=== PATIENT | female | born 2005 | race Caucasian/White ===

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

== ENCOUNTER 2023-08-12 20:06 | Emergency (ER) | payer OTHER ==
[~2023-08-12] VITALS: Ht 149.9 cm; Wt 47.7 kg
[~2023-08-12 20:06] MED LIST changes: +CHOL100046 PO; +CLOB10TA; +DIF150T PO; +EST1T PO; +FAMO20TA8 PO; +GLUC3SPR; -HYDR5TAB8 PO; -IBUP-2264 PO; +IBUP-2697 PO; +INSU100C10 SQ; +INSU100V41; -KEP500T PO; +LACO100T2 PO; +LIDO1ADH78 TOP; -MAGN400C PO; +MAGN400T39 PO; -NOVRI SQ; +OMEP20CA15 PO; -PANT-47 PO; -PHEN16.22 PO; +PRE5T CORPAK; +PRED5TAB PO; -RUFI400T PO; +SERT25TA PO; +SUMA25TA35 PO; +ZONI100C87 PO
[2023-08-12 20:28] VITALS: BP 125/86; PULSE 99; RESP 14; TEMP 98.3; O2SAT 99
[2023-08-12 21:04] LABS: BASOPHILS % (AUTO) 0.3 % (0-1); EOSINOPHILS # (AUTO) 0.2 X10'3 (0-0.9); EOSINOPHILS % (AUTO) 2.4 % (0-6); HEMATOCRIT 33.6 % (35.0-45.0); HEMOGLOBIN 10.5 g/dl (12.0-16.0); LYMPHOCYTES # (AUTO) 1.7 X10'3 (1.1-4.8); LYMPHOCYTES % (AUTO) 25.6 % (21-51); MEAN CORPUSCULAR HGB CONC 31.1 g/dL (33.0-36.5); MEAN CORPUSCULAR VOLUME 70.8 FL (78-98); MONOCYTES # (AUTO) 0.7 X10'3 (0-0.9); MONOCYTES % (AUTO) 10.6 % (2-12); NEUTROPHILS % (AUTO) 61.1 % (42-75); PLATELET COUNT 365 X10'3 (140-440); RED BLOOD COUNT 4.75 X10'6 (4.20-5.60); RED CELL DISTRIBUTION WIDTH 17.6 % (11.5-14.5); WHITE BLOOD COUNT 6.6 X10'3 (4.5-11.0)
[2023-08-12 21:16] LABS: URINE HCG NEGATIVE (NEG)
[2023-08-12 21:16] LABS: ALANINE AMINOTRANSFERASE 26 U/L (12-78); ALBUMIN 3.8 G/DL (3.4-5.0); ALBUMIN/GLOBULIN RATIO 0.7 (1.1-1.5); ALKALINE PHOSPHATASE 98 IU/L (20-180); ANION GAP 10 (8-16); ASPARTATE AMINO TRANSFERASE 42 U/L (10-37); BILIRUBIN,TOTAL 0.3 MG/DL (0.1-1.0); BLOOD UREA NITROGEN 20 MG/DL (7-18); BUN/CREATININE RATIO 18.7 (10.0-20.0); CALCIUM 8.1 MG/DL (8.5-10.1); CHLORIDE 101 MMOL/L (99-107); CREATININE 1.07 MG/DL (0.40-0.90); GLUCOSE 82 MG/DL (70-104); LIPASE 56 U/L (16-77); POTASSIUM 3.4 MMOL/L (3.5-5.1); SODIUM 139 MMOL/L (135-145); TOTAL CARBON DIOXIDE 28.4 MMOL/L (24-32); TOTAL PROTEIN 9.1 G/DL (6.4-8.2); eCRCL 58 ML/MIN; eGFR 66 ML/MIN
[2023-08-12 21:18] LABS: BILIRUBIN,URINE NEGATIVE (Neg); CLARITY,URINE SLIGHTLY CLOUDY (Clear); COLOR,URINE YELLOW (Yellow); GLUCOSE, URINE 100 mg/dl (Neg); KETONES,URINE NEGATIVE (Neg); LEUKOCYTE ESTERASE ,URINE NEGATIVE (Neg); NITRITES, URINE NEGATIVE (Neg); OCCULT BLOOD,URINE NEGATIVE (Neg); PROTEIN,URINE NEGATIVE (Neg); UROBILINOGEN,URINE 0.2 E.U/dL (0.2-1.0)
[2023-08-12 21:21] LABS: UA COLLECTION TYPE CLN CATCH MIDSTREAM
[2023-08-12 21:46] LABS: AMORPHOUS URATES 2+; BACTERIA,URINE 1+ /HPF (Neg); RBC,URINE 0-2 /HPF (0-2); WBC,URINE 0-4 /HPF (0-4)
[2023-08-12 21:47] LABS: COARSE GRANULAR CAST 0-3 /LPF (NEGATIVE)
[2023-08-12 21:48] LABS: HYALINE CASTS 0-3 /LPF (NEGATIVE); MUCUS STRANDS MODERATE /LPF (Neg); SQUAMOUS EPITHELIAL CELL,UR MANY /LPF (FEW)
[2023-08-13] MEDS ORDERED: ONDA8TAB13 PO (00:43)
[2023-08-13] MEDS ORDERED: FAMO-128 PO (00:43)
[2023-08-13] MEDS: famotidine 20mg tablet PO ONE (01:06)
[2023-08-13] MEDS: ondansetron 4mg rapidly disintigrating tab PO ONE (01:06)
[2023-08-13] MEDS ORDERED: SULF1TAB49 PO (01:07)
[2023-08-13 01:42] LABS: STREP A SCREEN NEGATIVE (Neg)
== END 2023-08-13 01:41 | disposition home or self-care (01) ==
LOC: ER 20:06
DX: R10.13 Epigastric pain (principal); Z88.0 Allergy status to penicillin; E11.9 Type 2 diabetes mellitus without complications; Z90.49 Acquired absence of other specified parts of digestive tract
CPT/HCPCS: 36415; 80053; 81001; 81025; 83690; 85025; 87081; 87880; 99283

== ENCOUNTER 2023-09-12 17:17 | Emergency (ER) | payer OTHER ==
[~2023-09-12] VITALS: Ht 162.6 cm; Wt 45.5 kg
[~2023-09-12 17:17] MED LIST changes: -CLOB10TA; +CLOB10TA PO; +FAMO-128 PO; +LEVO-65 PO; +ONDA8TAB13 PO
[2023-09-12 17:25] VITALS: TEMP 98.6
[2023-09-12 19:47] LABS: ALANINE AMINOTRANSFERASE 37 U/L (12-78); ALBUMIN 3.6 G/DL (3.4-5.0); ALBUMIN/GLOBULIN RATIO 0.8 (1.1-1.5); ALKALINE PHOSPHATASE 64 IU/L (20-180); ANION GAP 13 (8-16); ASPARTATE AMINO TRANSFERASE 38 U/L (10-37); BILIRUBIN,TOTAL 0.2 MG/DL (0.1-1.0); BLOOD UREA NITROGEN 19 MG/DL (7-18); BUN/CREATININE RATIO 15.1 (10.0-20.0); CALCIUM 7.2 MG/DL (8.5-10.1); CHLORIDE 97 MMOL/L (99-107); CREATININE 1.26 MG/DL (0.40-0.90); GLUCOSE 350 MG/DL (70-104); POTASSIUM 3.4 MMOL/L (3.5-5.1); SODIUM 131 MMOL/L (135-145); TOTAL CARBON DIOXIDE 21.4 MMOL/L (24-32); TOTAL PROTEIN 8.2 G/DL (6.4-8.2); eCRCL 52 ML/MIN; eGFR 55 ML/MIN
[2023-09-12 19:48] LABS: URINE HCG NEGATIVE (NEG)
[2023-09-12 19:50] LABS: FREE T4 (FREE THYROXINE) 1.03 NG/DL (0.73-1.40); LIPASE 71 U/L (16-77); PRO BRAIN NATRIURETIC PEPTIDE 309 PG/ML (0-125); THYROID STIMULATING HORMONE 1.05 ulU/ml (0.34-4.50)
[2023-09-12 19:50] LABS: ACETONE NEGATIVE (NEGATIVE)
[2023-09-12 19:53] LABS: BILIRUBIN,URINE NEGATIVE (Neg); CLARITY,URINE CLEAR (Clear); COLOR,URINE YELLOW (Yellow); GLUCOSE, URINE >=1000 mg/dl (Neg); KETONES,URINE 40 mg/dl (Neg); LEUKOCYTE ESTERASE ,URINE NEGATIVE (Neg); NITRITES, URINE NEGATIVE (Neg); OCCULT BLOOD,URINE TRACE-INTACT (Neg); PROTEIN,URINE NEGATIVE (Neg); URINE AMPHETAMINE SCREEN NEGATIVE (Neg); URINE BARBITUATE SCREEN NEGATIVE (Neg); URINE BENZODIAZEPINES SCREEN POSITIVE (Neg); URINE CANNABINOID SCREEN NEGATIVE (Neg); URINE COCAINE SCREEN NEGATIVE (Neg); URINE METHADONE SCREEN NEGATIVE (Neg); URINE OPIATE SCREEN NEGATIVE (Neg); URINE PHENCYCLIDINE SCREEN NEGATIVE (Neg); UROBILINOGEN,URINE 0.2 E.U/dL (0.2-1.0)
[2023-09-12 19:55] LABS: UA COLLECTION TYPE CLN CATCH MIDSTREAM
[2023-09-12 20:06] LABS: BACTERIA,URINE FEW /HPF (Neg); MUCUS STRANDS NONE SEEN /LPF (Neg); RBC,URINE 0-2 /HPF (0-2); SQUAMOUS EPITHELIAL CELL,UR FEW /LPF (FEW); WBC,URINE 0-4 /HPF (0-4)
[2023-09-12 23:40] LABS: LYMPHOCYTES # (AUTO) 1.3 X10'3 (1.1-4.8); MONOCYTES # (AUTO) 0.7 X10'3 (0-0.9); NEUTROPHILS % (AUTO) 65.9 % (42-75)
[2023-09-12 23:43] LABS: BASOPHILS % (AUTO) 0.2 % (0-1); EOSINOPHILS # (AUTO) 0.2 X10'3 (0-0.9); EOSINOPHILS % (AUTO) 2.3 % (0-6); HEMATOCRIT 29.8 % (35.0-45.0); HEMOGLOBIN 9.4 g/dl (12.0-16.0); LYMPHOCYTES % (AUTO) 20.9 % (21-51); MEAN CORPUSCULAR HGB CONC 31.5 g/dL (33.0-36.5); MEAN CORPUSCULAR VOLUME 69.8 FL (78-98); MEAN PLATELET VOLUME 8.6 FL (7.4-10.4); MONOCYTES % (AUTO) 10.7 % (2-12); NEUTROPHILS # (AUTO) 4.2 X10'3 (1.8-7.7); PLATELET COUNT 226 X10'3 (140-440); RED BLOOD COUNT 4.27 X10'6 (4.20-5.60); RED CELL DISTRIBUTION WIDTH 18.3 % (11.5-14.5); WHITE BLOOD COUNT 6.4 X10'3 (4.5-11.0)
[2023-09-12] MEDS: potassium Cl 20 mEq SR tablet PO STA (23:45)
[2023-09-12] MEDS: normal saline 1000ML IV soln IVB ONE ×2 (23:45)
[2023-09-12] MEDS: CALCIUM GLUC 1gm/50ml NACL,iso 50 ML IV SCH (23:46)
[2023-09-13 00:15] LABS: ANISOCYTOSIS 1+; ELLIPTOCYTES FEW; MICROCYTOSIS 1+; PLATELET ESTIMATE NORMAL
[2023-09-13] MEDS: insulin regular, human 10 units/0.1 ml syringe IV ONE (00:46)
[2023-09-13 03:08] VITALS: BP 117/81; PULSE 85; RESP 18; O2SAT 99
== END 2023-09-13 03:10 | disposition home or self-care (01) ==
LOC: ER 17:19
DX: E86.0 Dehydration (principal); E11.65 Type 2 diabetes mellitus with hyperglycemia; Z88.0 Allergy status to penicillin; Z79.899 Other long term (current) drug therapy; Z79.84 Long term (current) use of oral hypoglycemic drugs; Z90.49 Acquired absence of other specified parts of digestive tract
CPT/HCPCS: 36415; 71045; 80053; 80305; 81001; 81025; 82009; 82948; 83690; 83880; 84145; 84439; 84443; 84484; 85008; 85025; 96365; 96366; 96375; 99284; J0610; J1815; J7030; J7040

== ENCOUNTER 2023-11-27 08:24 | Emergency (ER) | payer OTHER ==
[~2023-11-27] VITALS: Ht 149.9 cm; Wt 51.7 kg
[~2023-11-27 08:24] MED LIST changes: -LEVO-65 PO; +ONDA-245 PO; -ONDA8TAB13 PO
[2023-11-27] MEDS: normal saline 1000ML IV soln IVB ONE ×4 (09:05→12:01)
[2023-11-27 09:33] LABS: BASOPHILS % (AUTO) 0.8 % (0-1); EOSINOPHILS # (AUTO) 0.1 X10'3 (0-0.9); EOSINOPHILS % (AUTO) 1.8 % (0-6); HEMATOCRIT 26.5 % (35.0-45.0); HEMOGLOBIN 7.9 g/dl (12.0-16.0); LYMPHOCYTES # (AUTO) 1.7 X10'3 (1.1-4.8); LYMPHOCYTES % (AUTO) 28.3 % (21-51); MEAN CORPUSCULAR HEMOGLOBIN 19.7 PG (27.0-31.0); MEAN CORPUSCULAR HGB CONC 29.6 g/dL (33.0-36.5); MEAN CORPUSCULAR VOLUME 66.5 FL (78-98); MEAN PLATELET VOLUME 7.7 FL (7.4-10.4); MONOCYTES # (AUTO) 0.4 X10'3 (0-0.9); MONOCYTES % (AUTO) 6.2 % (2-12); NEUTROPHILS # (AUTO) 3.8 X10'3 (1.8-7.7); NEUTROPHILS % (AUTO) 62.9 % (42-75); PLATELET COUNT 298 X10'3 (140-440); RED BLOOD COUNT 3.99 X10'6 (4.20-5.60)
[2023-11-27] MEDS: diphenhydrAMINE 50 mg/ml inj IV ONE (09:39)
[2023-11-27] MEDS: metoclopramide 5 mg/ml inj IV ONE (09:39)
[2023-11-27 09:44] LABS: ALANINE AMINOTRANSFERASE 27 U/L (12-78); ALKALINE PHOSPHATASE 61 IU/L (20-180); AMYLASE 81 U/L (25-115); ANION GAP 9 (8-16); ASPARTATE AMINO TRANSFERASE 25 U/L (10-37); BILIRUBIN,TOTAL 0.2 MG/DL (0.1-1.0); BLOOD UREA NITROGEN 28 MG/DL (7-18); CHLORIDE 99 MMOL/L (99-107); CREATININE 1.12 MG/DL (0.40-0.90); LIPASE 85 U/L (16-77); POTASSIUM 3.6 MMOL/L (3.5-5.1); SODIUM 135 MMOL/L (135-145); TOTAL CARBON DIOXIDE 27.5 MMOL/L (24-32); eCRCL 55 ML/MIN; eGFR 62 ML/MIN
[2023-11-27 09:48] LABS: ALBUMIN/GLOBULIN RATIO 0.7 (1.1-1.5); TOTAL PROTEIN 7.1 G/DL (6.4-8.2)
[2023-11-27 09:57] LABS: GLUCOSE 402 MG/DL (70-104)
[2023-11-27] MEDS: ondansetron/PF 4mg/2ml inj IV ONE (10:00)
[2023-11-27 10:04] LABS: ANISOCYTOSIS 2+; PLATELET ESTIMATE NORMAL
[2023-11-27 10:05] LABS: HYPOCHROMASIA 2+; MICROCYTOSIS 2+
[2023-11-27 10:06] LABS: ELLIPTOCYTES FEW; TEAR DROP CELLS FEW
[2023-11-27] MEDS ORDERED: insulin regular, human 10 units/0.1 ml syringe IV ONE (10:35)
[2023-11-27 10:57] LABS: % IRON SATURATION 2 % (11-46); IRON 8 UG/DL (49-151); TOTAL IRON BINDING CAPACITY 359 UG/DL (259-388)
[2023-11-27] MEDS ORDERED: CALC-995 PO ×2 (11:04→11:10)
[2023-11-27] MEDS ORDERED: FERR325T28 PO (11:10)
[2023-11-27] MEDS: insulin regular, human 10 units/0.1 ml syringe SQ ONE (11:27)
[2023-11-27] MEDS: CALCIUM GLUC 1gm/50ml NACL,iso 100 ML IV STA (12:39)
[2023-11-27 13:08] VITALS: BP 116/76; PULSE 63; RESP 16; TEMP 97; O2SAT 97
[2023-11-27 13:22] LABS: BILIRUBIN,URINE NEGATIVE (Neg); CLARITY,URINE CLEAR (Clear); COLOR,URINE YELLOW (Yellow); GLUCOSE, URINE >=1000 mg/dl (Neg); KETONES,URINE NEGATIVE (Neg); LEUKOCYTE ESTERASE ,URINE NEGATIVE (Neg); NITRITES, URINE NEGATIVE (Neg); OCCULT BLOOD,URINE NEGATIVE (Neg); PROTEIN,URINE NEGATIVE (Neg); UROBILINOGEN,URINE 0.2 E.U/dL (0.2-1.0)
[2023-11-27 13:24] LABS: URINE HCG NEGATIVE (NEG)
[2023-11-27 13:42] LABS: UA COLLECTION TYPE CLN CATCH MIDSTREAM
[2023-11-27 13:43] LABS: BACTERIA,URINE FEW /HPF (Neg); RBC,URINE 0-2 /HPF (0-2); SQUAMOUS EPITHELIAL CELL,UR FEW /LPF (FEW); WBC,URINE 0-4 /HPF (0-4)
[2023-11-27] MEDS: LIDOcaine 2% Viscous 15ml cup MM ONE (14:42)
[2023-11-27] MEDS: mag hydrox/Alum hydrox/simeth 30ml oral suspension PO ONE (14:42)
== END 2023-11-27 16:04 | disposition home or self-care (01) ==
LOC: ER 08:24
DX: E10.65 Type 1 diabetes mellitus with hyperglycemia (principal); R10.84 Generalized abdominal pain; Z88.0 Allergy status to penicillin; Z79.899 Other long term (current) drug therapy; Z90.49 Acquired absence of other specified parts of digestive tract; Z79.4 Long term (current) use of insulin
CPT/HCPCS: 36415; 80053; 81001; 81025; 82150; 82948; 83540; 83550; 83690; 85008; 85025; 93005; 96361; 96365; 96372; 96375; 99284; J0610; J1200; J1815; J2765; J7030; J7040

== ENCOUNTER 2024-01-11 13:48 | Inpatient (IN) | payer MEDICAID, OTHER ==
[~2024-01-11] VITALS: Ht 154.9 cm; Wt 50.5 kg
[~2024-01-11 13:48] MED LIST changes: +CALC-995 PO
[2024-01-11 15:15] LABS: BASOPHILS # (AUTO) 0.1 X10'3 (0-0.2); BASOPHILS % (AUTO) 1.3 % (0-1); EOSINOPHILS # (AUTO) 0.1 X10'3 (0-0.9); EOSINOPHILS % (AUTO) 2.4 % (0-6); LYMPHOCYTES # (AUTO) 1.4 X10'3 (1.1-4.8); LYMPHOCYTES % (AUTO) 23.7 % (21-51); MEAN PLATELET VOLUME 7.9 FL (7.4-10.4); MONOCYTES # (AUTO) 0.5 X10'3 (0-0.9); MONOCYTES % (AUTO) 7.7 % (2-12); NEUTROPHILS % (AUTO) 64.9 % (42-75); PLATELET COUNT 284 X10'3 (140-440); WHITE BLOOD COUNT 6.1 X10'3 (4.5-11.0)
[2024-01-11] MEDS: normal saline 1000ml 1,000 ML IV ONE (15:21)
[2024-01-11 15:25] LABS: ACETONE NEGATIVE (NEGATIVE)
[2024-01-11] MEDS: metoclopramide 5 mg/ml inj IV ONE (15:26)
[2024-01-11] MEDS: diphenhydrAMINE 50 mg/ml inj IV ONE (15:26)
[2024-01-11 15:34] LABS: ALANINE AMINOTRANSFERASE 20 U/L (12-78); ALBUMIN 3.6 G/DL (3.4-5.0); ALBUMIN/GLOBULIN RATIO 0.8 (1.1-1.5); ALKALINE PHOSPHATASE 69 IU/L (20-180); ANION GAP 14 (8-16); ASPARTATE AMINO TRANSFERASE 23 U/L (10-37); BILIRUBIN,TOTAL 0.3 MG/DL (0.1-1.0); BLOOD UREA NITROGEN 23 MG/DL (7-18); BUN/CREATININE RATIO 18.1 (10.0-20.0); CHLORIDE 102 MMOL/L (99-107); CREATININE 1.27 MG/DL (0.40-0.90); GLUCOSE 157 MG/DL (70-104); LIPASE 54 U/L (16-77); MAGNESIUM 1.6 MG/DL (1.5-2.4); PHOSPHORUS 2.9 MG/DL (2.3-4.5); POTASSIUM 3.3 MMOL/L (3.5-5.1); SODIUM 139 MMOL/L (135-145); TOTAL CARBON DIOXIDE 22.8 MMOL/L (24-32); TOTAL PROTEIN 7.9 G/DL (6.4-8.2); eCRCL 53 ML/MIN; eGFR 54 ML/MIN
[2024-01-11 15:42] LABS: HEMATOCRIT 30.4 % (35.0-45.0); HEMOGLOBIN 9.6 g/dl (12.0-16.0); MEAN CORPUSCULAR VOLUME 63.4 FL (78-98); RED BLOOD COUNT 4.79 X10'6 (4.20-5.60)
[2024-01-11 15:43] LABS: MEAN CORPUSCULAR HGB CONC 31.5 g/dL (33.0-36.5)
[2024-01-11 15:49] LABS: PLATELET ESTIMATE NORMAL
[2024-01-11 15:50] LABS: ANISOCYTOSIS 2+; HYPOCHROMASIA 2+
[2024-01-11 15:51] LABS: ELLIPTOCYTES FEW; MICROCYTOSIS 2+; TARGET CELLS FEW; TEAR DROP CELLS FEW
[2024-01-11 17:00] LABS: URINE HCG NEGATIVE (NEG)
[2024-01-11 17:01] LABS: BILIRUBIN,URINE NEGATIVE (Neg); CLARITY,URINE CLEAR (Clear); COLOR,URINE STRAW (Yellow); GLUCOSE, URINE 100 mg/dl (Neg); KETONES,URINE TRACE mg/dl (Neg); LEUKOCYTE ESTERASE ,URINE NEGATIVE (Neg); NITRITES, URINE NEGATIVE (Neg); OCCULT BLOOD,URINE TRACE-INTACT (Neg); PROTEIN,URINE NEGATIVE (Neg); UROBILINOGEN,URINE 0.2 E.U/dL (0.2-1.0)
[2024-01-11 17:09] LABS: UA COLLECTION TYPE CLN CATCH MIDSTREAM
[2024-01-11 17:12] LABS: BACTERIA,URINE NONE SEEN /HPF (Neg); MUCUS STRANDS NONE SEEN /LPF (Neg); SQUAMOUS EPITHELIAL CELL,UR FEW /LPF (FEW); WBC,URINE 0-4 /HPF (0-4)
[2024-01-11 17:17] LABS: URINE AMPHETAMINE SCREEN NEGATIVE (Neg); URINE BARBITUATE SCREEN NEGATIVE (Neg); URINE BENZODIAZEPINES SCREEN POSITIVE (Neg); URINE CANNABINOID SCREEN POSITIVE (Neg); URINE COCAINE SCREEN NEGATIVE (Neg); URINE METHADONE SCREEN NEGATIVE (Neg); URINE OPIATE SCREEN NEGATIVE (Neg); URINE PHENCYCLIDINE SCREEN NEGATIVE (Neg)
[2024-01-11 18:33] LABS: HCG SERUM QL NEGATIVE
[2024-01-11] MEDS: morphine 4 MG/ML inj SYRINge IV ONE (19:20)
[2024-01-11] MEDS: dexamethasone sod phosphate 10mg/ml inj IV STA (20:21)
[2024-01-11] MEDS ORDERED: magnesium sulf-water 4G/100mL 100 ML IV PRN (20:35)
[2024-01-11] MEDS ORDERED: magnesium hydroxide 30ml (MOM) UD suspension PO PRN (20:35)
[2024-01-11] MEDS ORDERED: potassium Cl 20 mEq SR tablet PO PRN ×5 (20:35→22:15)
[2024-01-11] MEDS ORDERED: mag hydrox/Alum hydrox/simeth 30ml oral suspension PO PRN (20:35)
[2024-01-11] MEDS ORDERED: acetaminophen 325mg tablet PO PRN (20:35)
[2024-01-11] MEDS ORDERED: potassium Cl 40MEQ/1/2NS 520ml 520 ML IV PRN ×2 (20:35→20:55)
[2024-01-11] MEDS: normal saline 1000ml 1,000 ML IV SCH (20:44)
[2024-01-11] MEDS: normal saline 500ml IV soln 500 ML IV ONE (20:45)
[2024-01-11] MEDS ORDERED: sodium phosphate inj. 30 MMOL in dextrose 5%-water 250 ML IV PRN (20:55)
[2024-01-11] MEDS ORDERED: insulin regular, human U-100 3ml vial - multi-dose IV PRN (20:55)
[2024-01-11] MEDS ORDERED: normal saline 1000ml 1,000 ML IV SCH (20:55)
[2024-01-11] MEDS ORDERED: potassium CL 20mEq in D5-1/2NS 1,000 ML IV PRN (20:55)
[2024-01-11] MEDS ORDERED: sodium bicarbonate (8.4%) inj. 50 MEQ in dextrose 5% water 500ml 250 ML IV PRN (20:55)
[2024-01-11] MEDS ORDERED: dextrose 50%-water 50ml dispensing syringe IV PRN ×3 (20:55→21:55)
[2024-01-11] MEDS ORDERED: sodium phosphate inj. 15 MMOL in dextrose 5%-water 250 ML IV PRN (20:55)
[2024-01-11] MEDS ORDERED: Neutra Phos packet PO PRN (20:55)
[2024-01-11] MEDS ORDERED: sodium bicarbonate (8.4%) inj. 100 MEQ in dextrose 5% water 500ml 500 ML IV PRN (20:55)
[2024-01-11] MEDS ORDERED: Insulin Reg/NS 100units/100mL 100 ML IV SCH (20:55)
[2024-01-11] MEDS ORDERED: SUMAtriptan 25 MG tablet PO PRN (21:00)
[2024-01-11] MEDS ORDERED: magnesium oxide 400mg tablet PO PRN (21:00)
[2024-01-11] MEDS ORDERED: insulin regular, human 10 units/0.1 ml syringe IV PRN (21:16)
[2024-01-11] MEDS ORDERED: glucagon, human recombinant 1mg kit SUBCUT PRN (21:55)
[2024-01-11] MEDS ORDERED: DEXTROSE 15 GM of carb/4 tabs (each vial/BOTTLE has 4 tablets) PO PRN ×2 (21:55)
[2024-01-11] MEDS: fluconazole 150mg tablet PO SCH (23:12)
[2024-01-11 23:15] VITALS: BP 92/51; PULSE 84; RESP 20; TEMP 98.6; O2SAT 98
[2024-01-11] MEDS ORDERED: insulin Lispro (HumaLOG) vial - multi-dose SQ ONE (23:40)
[2024-01-12] VITALS (8 sets, daily range): BP systolic 90–115; BP diastolic 48–73; PULSE 56–82; RESP 12–20; TEMP 97.6–99; O2SAT 98–100
[2024-01-12] MEDS: insulin glargine (Lantus) pen - multi-dose SQ SCH ×2 (00:05→21:37)
[2024-01-12] MEDS ORDERED: HYDROmorphone 1 mg/ml syringe IM ONE (00:35)
[2024-01-12] MEDS: INSULIN LISPRO 100 UNIT/ML INSULN.PEN MULTI-DOSE SQ SCH ×5 (00:43→18:45)
[2024-01-12] MEDS: bisacodyl 10mg suppository rectal RC STA (00:46)
[2024-01-12] MEDS: HYDROmorphone 1 mg/ml syringe IV ONE (01:17)
[2024-01-12 01:59] LABS: BASOPHILS % (AUTO) 0.3 % (0-1); EOSINOPHILS % (AUTO) 0.1 % (0-6); LYMPHOCYTES # (AUTO) 0.4 X10'3 (1.1-4.8); LYMPHOCYTES % (AUTO) 4.4 % (21-51); MEAN PLATELET VOLUME 7.7 FL (7.4-10.4); MONOCYTES % (AUTO) 0.3 % (2-12); NEUTROPHILS # (AUTO) 9.7 X10'3 (1.8-7.7); NEUTROPHILS % (AUTO) 94.9 % (42-75); PLATELET COUNT 325 X10'3 (140-440); WHITE BLOOD COUNT 10.2 X10'3 (4.5-11.0)
[2024-01-12 02:16] LABS: ALANINE AMINOTRANSFERASE 18 U/L (12-78); ALBUMIN 3.1 G/DL (3.4-5.0); ALBUMIN/GLOBULIN RATIO 0.8 (1.1-1.5); ALKALINE PHOSPHATASE 63 IU/L (20-180); ANION GAP 22 (8-16); ASPARTATE AMINO TRANSFERASE 18 U/L (10-37); BILIRUBIN,TOTAL 0.3 MG/DL (0.1-1.0); BLOOD UREA NITROGEN 26 MG/DL (7-18); BUN/CREATININE RATIO 17.2 (10.0-20.0); CHLORIDE 104 MMOL/L (99-107); CREATININE 1.51 MG/DL (0.40-0.90); GLUCOSE 354 MG/DL (70-104); MAGNESIUM 1.2 MG/DL (1.5-2.4); POTASSIUM 3.4 MMOL/L (3.5-5.1); SODIUM 140 MMOL/L (135-145); THYROID STIMULATING HORMONE 0.23 ulU/ml (0.34-4.50); TOTAL PROTEIN 6.8 G/DL (6.4-8.2); eCRCL 45 ML/MIN; eGFR 44 ML/MIN
[2024-01-12 02:31] LABS: CALCIUM 5.9 MG/DL (8.5-10.1); TOTAL CARBON DIOXIDE 14.1 MMOL/L (24-32)
[2024-01-12] MEDS ORDERED: Neutra Phos packet PO PRN (02:45)
[2024-01-12] MEDS ORDERED: potassium Cl 20 mEq SR tablet PO PRN ×2 (02:45)
[2024-01-12] MEDS ORDERED: sodium phosphate inj. 30 MMOL in dextrose 5%-water 250 ML IV PRN (02:45)
[2024-01-12] MEDS ORDERED: dextrose 50%-water 50ml dispensing syringe IV PRN (02:45)
[2024-01-12] MEDS: normal saline 1000ml 1,000 ML IV SCH ×3 (02:45→21:59)
[2024-01-12] MEDS ORDERED: sodium bicarbonate (8.4%) inj. 50 MEQ in dextrose 5% water 500ml 250 ML IV PRN (02:45)
[2024-01-12] MEDS ORDERED: sodium phosphate inj. 15 MMOL in dextrose 5%-water 250 ML IV PRN (02:45)
[2024-01-12] MEDS ORDERED: potassium Cl 40MEQ/1/2NS 520ml 520 ML IV PRN (02:45)
[2024-01-12] MEDS: magnesium sulf-water 2g/50mL 50 ML IV PRN (02:50)
[2024-01-12] MEDS ORDERED: sodium bicarbonate (8.4%) inj. 50 MEQ in dextrose 5%-water 250 ML IV PRN (03:23)
[2024-01-12 03:36] LABS: PHOSPHORUS 3.2 MG/DL (2.3-4.5)
[2024-01-12 03:48] LABS: HEMATOCRIT 25.7 % (35.0-45.0); HEMOGLOBIN 8.1 g/dl (12.0-16.0); RED BLOOD COUNT 4.11 X10'6 (4.20-5.60)
[2024-01-12] MEDS: potassium Cl 40MEQ/1/2NS 520ml 520 ML IV PRN (03:48)
[2024-01-12 03:49] LABS: MEAN CORPUSCULAR HEMOGLOBIN 19.6 PG (27.0-31.0); MEAN CORPUSCULAR HGB CONC 31.3 g/dL (33.0-36.5); MEAN CORPUSCULAR VOLUME 62.6 FL (78-98); RED CELL DISTRIBUTION WIDTH 18.6 % (11.5-14.5)
[2024-01-12] MEDS: potassium CL 20mEq in D5-1/2NS 1,000 ML IV PRN (04:23)
[2024-01-12 04:25] LABS: HEMOGLOBIN A1C 10.2 % (4.5-6.2)
[2024-01-12 04:28] LABS: PLATELET ESTIMATE NORMAL
[2024-01-12 04:29] LABS: ANISOCYTOSIS 2+; BURR CELLS 1+; ELLIPTOCYTES FEW; HYPOCHROMASIA 1+; MICROCYTOSIS 2+
[2024-01-12] MEDS: Insulin Reg/NS 100units/100mL 100 ML IV SCH (04:40)
[2024-01-12] MEDS: sodium bicarbonate (8.4%) inj. 100 MEQ in dextrose 5% water 500ml 500 ML IV PRN (04:41)
[2024-01-12 07:16] LABS: ALBUMIN 2.9 G/DL (3.4-5.0); ANION GAP 12 (8-16); BLOOD UREA NITROGEN 23 MG/DL (7-18); BUN/CREATININE RATIO 17.4 (10.0-20.0); CHLORIDE 104 MMOL/L (99-107); CREATININE 1.32 MG/DL (0.40-0.90); GLUCOSE 351 MG/DL (70-104); POTASSIUM 3.9 MMOL/L (3.5-5.1); SODIUM 141 MMOL/L (135-145); TOTAL CARBON DIOXIDE 24.6 MMOL/L (24-32); eCRCL 51 ML/MIN; eGFR 51 ML/MIN
[2024-01-12 07:21] LABS: CALCIUM 5.6 MG/DL (8.5-10.1)
[2024-01-12] MEDS ORDERED: calcium gluconate inj. 2 GM in normal saline 100ml IV soln 100 ML IV ONE ×2 (07:30→16:10)
[2024-01-12 07:33] LABS: BASOPHILS # (AUTO) 0.1 X10'3 (0-0.2); BASOPHILS % (AUTO) 0.7 % (0-1); EOSINOPHILS % (AUTO) 0.1 % (0-6); HEMATOCRIT 26.5 % (35.0-45.0); HEMOGLOBIN 7.8 g/dl (12.0-16.0); LYMPHOCYTES # (AUTO) 0.8 X10'3 (1.1-4.8); LYMPHOCYTES % (AUTO) 8.2 % (21-51); MEAN CORPUSCULAR HEMOGLOBIN 19.2 PG (27.0-31.0); MEAN CORPUSCULAR HGB CONC 29.7 g/dL (33.0-36.5); MEAN CORPUSCULAR VOLUME 64.9 FL (78-98); MEAN PLATELET VOLUME 8.3 FL (7.4-10.4); MONOCYTES # (AUTO) 0.2 X10'3 (0-0.9); MONOCYTES % (AUTO) 1.9 % (2-12); NEUTROPHILS # (AUTO) 8.4 X10'3 (1.8-7.7); NEUTROPHILS % (AUTO) 89.1 % (42-75); PLATELET COUNT 301 X10'3 (140-440); RED BLOOD COUNT 4.07 X10'6 (4.20-5.60); RED CELL DISTRIBUTION WIDTH 19.1 % (11.5-14.5); WHITE BLOOD COUNT 9.4 X10'3 (4.5-11.0)
[2024-01-12 07:39] LABS: ALANINE AMINOTRANSFERASE 18 U/L (12-78); ALBUMIN/GLOBULIN RATIO 0.8 (1.1-1.5); ALKALINE PHOSPHATASE 62 IU/L (20-180); ASPARTATE AMINO TRANSFERASE 22 U/L (10-37); BILIRUBIN,DIRECT 0.1 MG/DL (0-0.3); BILIRUBIN,TOTAL 0.2 MG/DL (0.1-1.0); MAGNESIUM 2.1 MG/DL (1.5-2.4); TOTAL PROTEIN 6.7 G/DL (6.4-8.2)
[2024-01-12] MEDS: calcium gluconate inj. 1 GM in NS 100ml IV soln (110 ML) IV ONE (07:45)
[2024-01-12] MEDS ORDERED: K and/or MAG REPLACEMENT MC SCH ×3 (08:00)
[2024-01-12] MEDS ORDERED: sertraline 50mg tablet PO SCH (08:00)
[2024-01-12] MEDS ORDERED: calcium carbonate 500mg tablet PO SCH (08:00)
[2024-01-12] MEDS: K and/or MAG REPLACEMENT MC SCH (08:00)
[2024-01-12] MEDS: calcium carbonate 500mg tablet PO SCH (09:34)
[2024-01-12] MEDS: cholecalciferol (vitamin D3) 1,000 unit (25mcg) tablet PO SCH (09:35)
[2024-01-12] MEDS: famotidine 20mg tablet PO SCH (09:36)
[2024-01-12] MEDS: docusate sod 100mg capsule PO SCH (09:36)
[2024-01-12] MEDS: calcitriol 0.25mcg capsule PO SCH (09:37)
[2024-01-12] MEDS: fludrocortisone acetate 0.1mg tablet PO SCH (09:38)
[2024-01-12] MEDS: zonisamide 100mg capsule PO SCH (09:40)
[2024-01-12] MEDS: CALCIUM GLUC 1gm/50ml NACL,iso 50 ML IV ONE ×3 (09:48→16:43)
[2024-01-12] MEDS: hydrocortisone sod succ/PF 100mg/2ml inj. IV SCH (11:49)
[2024-01-12] MEDS: LACOSAMIDE 50 MG TABLET PO SCH (11:49)
[2024-01-12] MEDS: cyclobenzaprine 10mg tablet PO ONE (12:36)
[2024-01-12] MEDS: metoclopramide 5 mg/ml inj IV PRN (12:37)
[2024-01-12 12:52] LABS: ALANINE AMINOTRANSFERASE 19 U/L (12-78); ALBUMIN/GLOBULIN RATIO 0.8 (1.1-1.5); ALKALINE PHOSPHATASE 57 IU/L (20-180); ANION GAP 14 (8-16); ASPARTATE AMINO TRANSFERASE 21 U/L (10-37); BILIRUBIN,TOTAL 0.2 MG/DL (0.1-1.0); BLOOD UREA NITROGEN 18 MG/DL (7-18); BUN/CREATININE RATIO 14.8 (10.0-20.0); CALCIUM 6.5 MG/DL (8.5-10.1); CHLORIDE 105 MMOL/L (99-107); CREATININE 1.22 MG/DL (0.40-0.90); GLUCOSE 136 MG/DL (70-104); POTASSIUM 3.4 MMOL/L (3.5-5.1); SODIUM 143 MMOL/L (135-145); TOTAL CARBON DIOXIDE 24.2 MMOL/L (24-32); TOTAL PROTEIN 6.6 G/DL (6.4-8.2); eCRCL 56 ML/MIN; eGFR 56 ML/MIN
[2024-01-12] MEDS: ondansetron/PF 4mg/2ml inj IV PRN (15:33)
[2024-01-12] MEDS: polyethylene glycol 3350 17gm powd pack PO SCH (19:55)
[2024-01-12] MEDS: potassium Cl 20 mEq SR tablet PO PRN (19:58)
[2024-01-12] MEDS: enoxaparin 40mg/0.4ml syringe SQ SCH (19:58)
[2024-01-12] MEDS ORDERED: insulin glargine (Lantus) pen - multi-dose SQ SCH ×2 (21:00)
[2024-01-12 21:21] LABS: ALBUMIN 3.1 G/DL (3.4-5.0); ANION GAP 13 (8-16); BLOOD UREA NITROGEN 15 MG/DL (7-18); BUN/CREATININE RATIO 10.9 (10.0-20.0); CALCIUM 7.4 MG/DL (8.5-10.1); CHLORIDE 102 MMOL/L (99-107); CREATININE 1.38 MG/DL (0.40-0.90); POTASSIUM 3.8 MMOL/L (3.5-5.1); SODIUM 136 MMOL/L (135-145); eCRCL 49 ML/MIN; eGFR 49 ML/MIN
[2024-01-12 21:33] LABS: GLUCOSE 449 MG/DL (70-104)
[2024-01-12] MEDS: INSULIN LISPRO 100 UNIT/ML INSULN.PEN MULTI-DOSE SQ ONE (21:36)
[2024-01-12] MEDS: diazepam 5mg tablet PO ONE (23:10)
[2024-01-13] VITALS (8 sets, daily range): BP systolic 105–145; BP diastolic 64–88; PULSE 47–69; RESP 18–20; TEMP 97.1–98.5; O2SAT 98–99
[2024-01-13 06:44] LABS: % IRON SATURATION 3 % (11-46); IRON 10 UG/DL (49-151); TOTAL IRON BINDING CAPACITY 357 UG/DL (259-388)
[2024-01-13 06:44] LABS: BASOPHILS % (AUTO) 0.2 % (0-1); EOSINOPHILS % (AUTO) 0 % (0-6); HEMATOCRIT 25.7 % (35.0-45.0); HEMOGLOBIN 7.8 g/dl (12.0-16.0); LYMPHOCYTES # (AUTO) 0.8 X10'3 (1.1-4.8); LYMPHOCYTES % (AUTO) 5.7 % (21-51); MEAN CORPUSCULAR HEMOGLOBIN 19.3 PG (27.0-31.0); MEAN CORPUSCULAR HGB CONC 30.3 g/dL (33.0-36.5); MEAN CORPUSCULAR VOLUME 63.8 FL (78-98); MEAN PLATELET VOLUME 8.2 FL (7.4-10.4); MONOCYTES # (AUTO) 0.3 X10'3 (0-0.9); MONOCYTES % (AUTO) 1.9 % (2-12); NEUTROPHILS # (AUTO) 12.6 X10'3 (1.8-7.7); NEUTROPHILS % (AUTO) 92.2 % (42-75); PLATELET COUNT 320 X10'3 (140-440); RED BLOOD COUNT 4.02 X10'6 (4.20-5.60); RED CELL DISTRIBUTION WIDTH 19.7 % (11.5-14.5); WHITE BLOOD COUNT 13.7 X10'3 (4.5-11.0)
[2024-01-13 06:55] LABS: ALANINE AMINOTRANSFERASE 23 U/L (12-78); ALBUMIN 2.8 G/DL (3.4-5.0); ALBUMIN/GLOBULIN RATIO 0.7 (1.1-1.5); ALKALINE PHOSPHATASE 62 IU/L (20-180); ANION GAP 10 (8-16); ASPARTATE AMINO TRANSFERASE 24 U/L (10-37); BILIRUBIN,TOTAL 0.2 MG/DL (0.1-1.0); BLOOD UREA NITROGEN 14 MG/DL (7-18); CHLORIDE 107 MMOL/L (99-107); FERRITIN 8 NG/ML (8-252); GLUCOSE 153 MG/DL (70-104); MAGNESIUM 1.3 MG/DL (1.5-2.4); PHOSPHORUS 3.6 MG/DL (2.3-4.5); POTASSIUM 3.3 MMOL/L (3.5-5.1); SODIUM 142 MMOL/L (135-145); TOTAL CARBON DIOXIDE 25.1 MMOL/L (24-32); TOTAL PROTEIN 6.7 G/DL (6.4-8.2); eCRCL 68 ML/MIN; eGFR 71 ML/MIN
[2024-01-13] MEDS: sertraline 25mg tablet PO SCH (08:17)
[2024-01-13] MEDS: magnesium Cl slow-release 64mg tablet PO PRN (08:18)
[2024-01-13 08:21] LABS: ANISOCYTOSIS 2+; ELLIPTOCYTES FEW; HYPOCHROMASIA 1+; MICROCYTOSIS 2+; PLATELET ESTIMATE NORMAL; POLYCHROMASIA FEW; TARGET CELLS FEW; TEAR DROP CELLS FEW
[2024-01-13] MEDS: iron sucrose complex injection 200 MG in normal saline 100ml IV soln 100 ML IV ONE (09:04)
[2024-01-13] MEDS: cyclobenzaprine 10mg tablet PO PRN (09:17)
[2024-01-13] MEDS: pantoprazole 40mg Tablet.DR PO ONE (16:36)
[2024-01-13] MEDS: CLOBAZAM 10 MG PO SCH (20:49)
[2024-01-14] VITALS (8 sets, daily range): BP systolic 118–150; BP diastolic 65–91; PULSE 44–51; RESP 18–20; TEMP 97–97.6; O2SAT 96–99
[2024-01-14 06:34] LABS: BASOPHILS % (AUTO) 0.2 % (0-1); EOSINOPHILS % (AUTO) 0 % (0-6); LYMPHOCYTES # (AUTO) 0.6 X10'3 (1.1-4.8); LYMPHOCYTES % (AUTO) 6.9 % (21-51); MEAN PLATELET VOLUME 8.3 FL (7.4-10.4); MONOCYTES # (AUTO) 0.3 X10'3 (0-0.9); MONOCYTES % (AUTO) 3.4 % (2-12); NEUTROPHILS # (AUTO) 8.4 X10'3 (1.8-7.7); NEUTROPHILS % (AUTO) 89.5 % (42-75); PLATELET COUNT 315 X10'3 (140-440); RED BLOOD COUNT 4.21 X10'6 (4.20-5.60); RED CELL DISTRIBUTION WIDTH 19.8 % (11.5-14.5); WHITE BLOOD COUNT 9.4 X10'3 (4.5-11.0)
[2024-01-14 06:40] LABS: ALANINE AMINOTRANSFERASE 206 U/L (12-78); ALBUMIN 2.7 G/DL (3.4-5.0); ALBUMIN/GLOBULIN RATIO 0.8 (1.1-1.5); ALKALINE PHOSPHATASE 60 IU/L (20-180); ANION GAP 10 (8-16); ASPARTATE AMINO TRANSFERASE 294 U/L (10-37); BILIRUBIN,TOTAL 0.1 MG/DL (0.1-1.0); BLOOD UREA NITROGEN 16 MG/DL (7-18); BUN/CREATININE RATIO 15.2 (10.0-20.0); CALCIUM 6.3 MG/DL (8.5-10.1); CHLORIDE 108 MMOL/L (99-107); CREATININE 1.05 MG/DL (0.40-0.90); GLUCOSE 267 MG/DL (70-104); MAGNESIUM 1.5 MG/DL (1.5-2.4); POTASSIUM 3.8 MMOL/L (3.5-5.1); SODIUM 141 MMOL/L (135-145); TOTAL CARBON DIOXIDE 23.3 MMOL/L (24-32); TOTAL PROTEIN 6.1 G/DL (6.4-8.2); eCRCL 64 ML/MIN; eGFR 67 ML/MIN
[2024-01-14 07:22] LABS: HEMATOCRIT 27.2 % (35.0-45.0); HEMOGLOBIN 8.7 g/dl (12.0-16.0)
[2024-01-14 07:23] LABS: MEAN CORPUSCULAR HEMOGLOBIN 18.8 PG (27.0-31.0); MEAN CORPUSCULAR VOLUME 64.7 FL (78-98)
[2024-01-14] MEDS ORDERED: iron sucrose complex injection 200 MG in normal saline 100ml IV soln 100 ML IV ONE (08:10)
[2024-01-14] MEDS: pantoprazole 40mg Tablet.DR PO SCH (09:13)
[2024-01-14] MEDS: HYDROcodone/acetaminophen 5mg/325mg tablet PO PRN (14:02)
[2024-01-14] MEDS: CALCIUM GLUC 1gm/50ml NACL,iso 50 ML IV ONE (17:26)
[2024-01-15 02:00] VITALS: BP 116/69; PULSE 44; RESP 18; TEMP 97.5; O2SAT 96
[2024-01-15 06:31] LABS: BASOPHILS % (AUTO) 0.1 % (0-1); EOSINOPHILS % (AUTO) 0 % (0-6); HEMATOCRIT 26.8 % (35.0-45.0); LYMPHOCYTES # (AUTO) 1.2 X10'3 (1.1-4.8); LYMPHOCYTES % (AUTO) 10.3 % (21-51); MEAN CORPUSCULAR HEMOGLOBIN 19.2 PG (27.0-31.0); MEAN CORPUSCULAR HGB CONC 29.8 g/dL (33.0-36.5); MEAN CORPUSCULAR VOLUME 64.5 FL (78-98); MEAN PLATELET VOLUME 8.7 FL (7.4-10.4); MONOCYTES # (AUTO) 0.5 X10'3 (0-0.9); MONOCYTES % (AUTO) 3.8 % (2-12); NEUTROPHILS # (AUTO) 10.1 X10'3 (1.8-7.7); NEUTROPHILS % (AUTO) 85.8 % (42-75); PLATELET COUNT 315 X10'3 (140-440); RED BLOOD COUNT 4.16 X10'6 (4.20-5.60); RED CELL DISTRIBUTION WIDTH 19.9 % (11.5-14.5); WHITE BLOOD COUNT 11.8 X10'3 (4.5-11.0)
[2024-01-15 06:40] LABS: ALANINE AMINOTRANSFERASE 135 U/L (12-78); ALBUMIN 2.4 G/DL (3.4-5.0); ALBUMIN/GLOBULIN RATIO 0.7 (1.1-1.5); ALKALINE PHOSPHATASE 57 IU/L (20-180); ANION GAP 8 (8-16); ASPARTATE AMINO TRANSFERASE 83 U/L (10-37); BILIRUBIN,TOTAL 0.2 MG/DL (0.1-1.0); BLOOD UREA NITROGEN 18 MG/DL (7-18); BUN/CREATININE RATIO 20.2 (10.0-20.0); CALCIUM 6.4 MG/DL (8.5-10.1); CHLORIDE 108 MMOL/L (99-107); CREATININE 0.89 MG/DL (0.40-0.90); GLUCOSE 130 MG/DL (70-104); MAGNESIUM 1.4 MG/DL (1.5-2.4); SODIUM 142 MMOL/L (135-145); TOTAL CARBON DIOXIDE 25.9 MMOL/L (24-32); TOTAL PROTEIN 5.9 G/DL (6.4-8.2); eCRCL 76 ML/MIN; eGFR 81 ML/MIN
[2024-01-15 07:28] LABS: OSMOLALITY 294 MOSM/K (280-300)
[2024-01-15 07:42] VITALS: BP 110/61; PULSE 47; RESP 18; TEMP 97.4; O2SAT 95
[2024-01-15 08:00] VITALS: RESP 15; O2SAT 95
[2024-01-15 08:22] LABS: NUCLEATED RED BLOOD CELLS 1 /100WBC (0-0); TOTAL CELLS COUNTED 100
[2024-01-15 08:23] LABS: ANISOCYTOSIS 2+; HYPOCHROMASIA 1+; MICROCYTOSIS 2+; PLATELET ESTIMATE NORMAL
[2024-01-15 08:24] LABS: BURR CELLS FEW; ELLIPTOCYTES FEW; POLYCHROMASIA FEW; TEAR DROP CELLS FEW
[2024-01-15] MEDS ORDERED: potassium Cl 20 mEq SR tablet PO PRN (10:50)
[2024-01-15] MEDS ORDERED: HYDR-3965 PO (10:51)
[2024-01-15] MEDS: potassium Cl 20 mEq SR tablet PO PRN (11:36)
[2024-01-15 12:37] VITALS: RESP 18; O2SAT 95
[2024-01-16 11:34] LABS: LUTEINIZING HORMONE 40.5 mIU/mL (.); PROGESTERONE <0.1 ng/mL (.)
[2024-01-16 13:13] LABS: ACTH, PLASMA 1.6 pg/mL (7.2-63.3)
[2024-01-18 13:32] LABS: GROWTH HORMONE, SERUM 0.2 ng/mL (0.0-10.0)
[2024-01-20 17:15] LABS: ESTRONE, SERUM 10 pg/mL (27-231)
== END 2024-01-15 12:20 | disposition home or self-care (01) | DRG 813 ==
LOC: ER 13:49 → ED HOLD 20:41 → PCU 3S 23:26
PROVIDERS: ADMIT Surgery Surgical Critical Care; ATTEND Internal Medicine
DX: T85.694A Other mechanical complication of insulin pump, initial encounter (principal); E10.10 Type 1 diabetes mellitus with ketoacidosis without coma; N17.9 Acute kidney failure, unspecified; E87.6 Hypokalemia; D64.9 Anemia, unspecified; G40.909 Epilepsy, unspecified, not intractable, without status epilepticus; D50.9 Iron deficiency anemia, unspecified; E03.9 Hypothyroidism, unspecified; Z20.822 Contact with and (suspected) exposure to COVID-19; X58.XXXA Exposure to other specified factors, initial encounter; Y93.89 Activity, other specified; Y92.89 Other specified places as the place of occurrence of the external cause; Y99.8 Other external cause status; Z88.0 Allergy status to penicillin; Z79.899 Other long term (current) drug therapy; Z90.49 Acquired absence of other specified parts of digestive tract
CPT/HCPCS: 36415; 70450; 71045; 74176; 80048; 80053; 80076; 80305; 81001; 81025; 82009; 82024; 82330; 82607; 82679; 82728; 82948; 83001; 83002; 83003; 83036; 83540; 83550; 83605; 83690; 83735; 83930; 83935; 83970; 84100; 84144; 84145; 84439; 84443; 84466; 84703; 85007; 85008; 85025; 86376; 87081; 87811; 93005; 96374; 96375; 97161; 97530; 99291; G0378; J0610; J1100; J1170; J1200; J1650; J1720; J1756; J1815; J2270; J2405; J2765; J3480; J3490; J7030; J7040; J7060

== ENCOUNTER 2024-06-30 18:40 | Emergency (ER) | payer MEDICAID ==
[~2024-06-30] VITALS: Ht 180.3 cm; Wt 61.7 kg
[~2024-06-30 18:40] MED LIST changes: -CALC-995 PO; -FAMO20TA8 PO; -IBUP-2697 PO; -OMEP20CA15 PO; -ONDA-245 PO; -PRED5TAB PO
[2024-06-30 19:05] LABS: URINE HCG NEGATIVE (NEG)
[2024-06-30 19:08] LABS: BILIRUBIN,URINE NEGATIVE (Neg); CLARITY,URINE CLEAR (Clear); COLOR,URINE YELLOW (Yellow); GLUCOSE, URINE NEGATIVE (Neg); KETONES,URINE NEGATIVE (Neg); LEUKOCYTE ESTERASE ,URINE NEGATIVE (Neg); NITRITES, URINE NEGATIVE (Neg); OCCULT BLOOD,URINE NEGATIVE (Neg); PROTEIN,URINE NEGATIVE (Neg); UROBILINOGEN,URINE 0.2 E.U/dL (0.2-1.0)
[2024-06-30 19:26] LABS: UA COLLECTION TYPE CLN CATCH MIDSTREAM
[2024-06-30 19:27] LABS: BASOPHILS # (AUTO) 0.1 X10'3 (0-0.2); BASOPHILS % (AUTO) 0.5 % (0-1); EOSINOPHILS # (AUTO) 0.1 X10'3 (0-0.9); LYMPHOCYTES # (AUTO) 1.3 X10'3 (1.1-4.8); MONOCYTES # (AUTO) 0.4 X10'3 (0-0.9)
[2024-06-30 19:29] LABS: HEMATOCRIT 45.3 % (35.0-45.0); HEMOGLOBIN 14.7 g/dl (12.0-16.0); MEAN CORPUSCULAR HEMOGLOBIN 27.9 PG (27.0-31.0); MEAN CORPUSCULAR HGB CONC 32.4 g/dL (33.0-36.5); MEAN CORPUSCULAR VOLUME 86.3 FL (78-98); MEAN PLATELET VOLUME 8.5 FL (7.4-10.4); NEUTROPHILS # (AUTO) 9.5 X10'3 (1.8-7.7); NEUTROPHILS % (AUTO) 83.5 % (42-75); PLATELET COUNT 275 X10'3 (140-440); RED BLOOD COUNT 5.25 X10'6 (4.20-5.60); RED CELL DISTRIBUTION WIDTH 15.9 % (11.5-14.5); WHITE BLOOD COUNT 11.4 X10'3 (4.5-11.0)
[2024-06-30 19:44] LABS: ALANINE AMINOTRANSFERASE 23 U/L (12-78); ALBUMIN 4.1 G/DL (3.4-5.0); ALBUMIN/GLOBULIN RATIO 0.9 (1.1-1.5); ALKALINE PHOSPHATASE 74 IU/L (20-180); ANION GAP 11 (8-16); ASPARTATE AMINO TRANSFERASE 24 U/L (10-37); BILIRUBIN,TOTAL 0.2 MG/DL (0.1-1.0); BLOOD UREA NITROGEN 23 MG/DL (7-18); BUN/CREATININE RATIO 19.2 (10.0-20.0); CALCIUM 8.8 MG/DL (8.5-10.1); CHLORIDE 102 MMOL/L (99-107); GLUCOSE 175 MG/DL (70-104); LIPASE 37 U/L (16-77); POTASSIUM 3.9 MMOL/L (3.5-5.1); SODIUM 138 MMOL/L (135-145); TOTAL CARBON DIOXIDE 25.3 MMOL/L (24-32); TOTAL PROTEIN 8.5 G/DL (6.4-8.2); eCRCL 73 ML/MIN; eGFR 57 ML/MIN
[2024-06-30] MEDS ORDERED: METH-798 PO (20:45)
[2024-06-30] MEDS: baclofen 10mg tablet PO STA (20:49)
[2024-06-30 20:54] VITALS: BP 149/80; PULSE 98; RESP 18; TEMP 98.6; O2SAT 99
== END 2024-06-30 21:01 | disposition home or self-care (01) ==
LOC: ER 18:41
DX: S39.012A Strain of muscle, fascia and tendon of lower back, initial encounter (principal); E10.22 Type 1 diabetes mellitus with diabetic chronic kidney disease; N18.9 Chronic kidney disease, unspecified; Z88.0 Allergy status to penicillin; Z88.8 Allergy status to other drugs, medicaments and biological substances; Z90.49 Acquired absence of other specified parts of digestive tract; Z79.4 Long term (current) use of insulin; X58.XXXA Exposure to other specified factors, initial encounter; Y93.89 Activity, other specified; Y92.89 Other specified places as the place of occurrence of the external cause; Y99.8 Other external cause status
CPT/HCPCS: 80053; 81003; 81025; 83690; 85025; 99283

== ENCOUNTER 2024-07-09 01:40 | Emergency (ER) | payer MEDICAID ==
[~2024-07-09] VITALS: Ht 165.1 cm; Wt 64.0 kg
[~2024-07-09 01:40] MED LIST changes: +METH-798 PO
[2024-07-09 02:17] LABS: BASOPHILS % (AUTO) 0.7 % (0-1); EOSINOPHILS # (AUTO) 0.1 X10'3 (0-0.9); EOSINOPHILS % (AUTO) 1.1 % (0-6); HEMATOCRIT 42.4 % (35.0-45.0); HEMOGLOBIN 14.1 g/dl (12.0-16.0); LYMPHOCYTES # (AUTO) 0.9 X10'3 (1.1-4.8); LYMPHOCYTES % (AUTO) 13.5 % (21-51); MEAN CORPUSCULAR HEMOGLOBIN 28.6 PG (27.0-31.0); MEAN CORPUSCULAR HGB CONC 33.3 g/dL (33.0-36.5); MEAN CORPUSCULAR VOLUME 85.9 FL (78-98); MONOCYTES # (AUTO) 0.3 X10'3 (0-0.9); MONOCYTES % (AUTO) 4.3 % (2-12); NEUTROPHILS # (AUTO) 5.4 X10'3 (1.8-7.7); NEUTROPHILS % (AUTO) 80.4 % (42-75); PLATELET COUNT 284 X10'3 (140-440); RED BLOOD COUNT 4.93 X10'6 (4.20-5.60); RED CELL DISTRIBUTION WIDTH 14.8 % (11.5-14.5); WHITE BLOOD COUNT 6.8 X10'3 (4.5-11.0)
[2024-07-09 02:31] LABS: ALANINE AMINOTRANSFERASE 17 U/L (12-78); ALBUMIN 3.8 G/DL (3.4-5.0); ALBUMIN/GLOBULIN RATIO 0.9 (1.1-1.5); ALKALINE PHOSPHATASE 69 IU/L (20-180); ANION GAP 10 (8-16); ASPARTATE AMINO TRANSFERASE 18 U/L (10-37); BILIRUBIN,TOTAL 0.4 MG/DL (0.1-1.0); BLOOD UREA NITROGEN 19 MG/DL (7-18); BUN/CREATININE RATIO 15.6 (10.0-20.0); CALCIUM 8.6 MG/DL (8.5-10.1); CHLORIDE 102 MMOL/L (99-107); CREATININE 1.22 MG/DL (0.40-0.90); GLUCOSE 166 MG/DL (70-104); LIPASE 37 U/L (16-77); POTASSIUM 3.7 MMOL/L (3.5-5.1); SODIUM 137 MMOL/L (135-145); TOTAL CARBON DIOXIDE 25.1 MMOL/L (24-32); TOTAL PROTEIN 8.1 G/DL (6.4-8.2); eGFR 56 ML/MIN
[2024-07-09 03:08] LABS: POIKILOCYTOSIS FEW; SCHISTOCYTES FEW
[2024-07-09] MEDS: ondansetron 4mg rapidly disintigrating tab PO ONE (03:21)
[2024-07-09] MEDS ORDERED: iohexol 300mg/ml 100ml inj. ONE (03:21)
[2024-07-09 03:56] LABS: HCG SERUM QL NEGATIVE
[2024-07-09] MEDS: normal saline 1000ml 1,000 ML IV ONE (04:19)
[2024-07-09] MEDS: proCHLORperazine 10 MG/2 ml inj IV PRN (04:19)
[2024-07-09 04:27] VITALS: TEMP 98
[2024-07-09] MEDS: ketorolac trometh 30MG/ML vial 30 MG/ML VIAL IV ONE (04:53)
[2024-07-09] MEDS ORDERED: PROC-8 PO (06:10)
[2024-07-09 06:34] VITALS: BP 105/59; PULSE 64; RESP 15; O2SAT 100
== END 2024-07-09 06:36 | disposition home or self-care (01) ==
LOC: ER 01:42
DX: R10.12 Left upper quadrant pain (principal); R11.2 Nausea with vomiting, unspecified; R19.7 Diarrhea, unspecified; E11.9 Type 2 diabetes mellitus without complications; Z88.0 Allergy status to penicillin; Z90.49 Acquired absence of other specified parts of digestive tract; Z79.899 Other long term (current) drug therapy
CPT/HCPCS: 36415; 74177; 80053; 83690; 84703; 85008; 85025; 96361; 96374; 96375; 99285; J0780; J1885; J7030; Q9967

== ENCOUNTER 2024-07-31 13:12 | Inpatient (IN) | payer MEDICAID ==
[~2024-07-31] VITALS: Ht 149.9 cm; Wt 67.7 kg
[~2024-07-31 13:12] MED LIST changes: +PROC-8 PO
[2024-07-31 14:01] LABS: BASOPHILS # (AUTO) 0.1 X10'3 (0-0.2); BASOPHILS % (AUTO) 0.5 % (0-1); EOSINOPHILS # (AUTO) 0.1 X10'3 (0-0.9); EOSINOPHILS % (AUTO) 0.9 % (0-6); HEMATOCRIT 44.1 % (35.0-45.0); HEMOGLOBIN 14.2 g/dl (12.0-16.0); LYMPHOCYTES # (AUTO) 1.7 X10'3 (1.1-4.8); LYMPHOCYTES % (AUTO) 10.9 % (21-51); MEAN CORPUSCULAR HEMOGLOBIN 28.5 PG (27.0-31.0); MEAN CORPUSCULAR HGB CONC 32.1 g/dL (33.0-36.5); MEAN CORPUSCULAR VOLUME 88.8 FL (78-98); MEAN PLATELET VOLUME 8.3 FL (7.4-10.4); MONOCYTES # (AUTO) 1.2 X10'3 (0-0.9); MONOCYTES % (AUTO) 7.7 % (2-12); NEUTROPHILS # (AUTO) 12.6 X10'3 (1.8-7.7); PLATELET COUNT 228 X10'3 (140-440); RED BLOOD COUNT 4.97 X10'6 (4.20-5.60); RED CELL DISTRIBUTION WIDTH 14.2 % (11.5-14.5); WHITE BLOOD COUNT 15.7 X10'3 (4.5-11.0)
[2024-07-31 14:10] LABS: ABG BASE EXCESS -5.3 mmol/L (-2.0-3.0); ABG HCO3 18.5 mmol/L (21.0-28.0); ABG OXYGEN SATURATION 97.6 % (94.0-98.0); ABG PCO2 (T) 30.8 mmHg (32.0-45.0); ABG PH (T) 7.395 (7.350-7.450); ABG PO2 (T) 100.1 mmHg (83.0-108.0); ALLEN'S TEST Yes; FHHb 2.4 % (0.0-5.0); FMetHb 0.3 % (0.0-1.5); FO2Hb 97.3 % (94.0-98.0); MODE ROOM AIR; PATIENT TEMPERATURE 36.4; TOTAL HEMOGLOBIN 14.1 G/dl (12.0-16.0)
[2024-07-31] MEDS: ondansetron/PF 4mg/2ml inj IV ONE (14:18)
[2024-07-31] MEDS: normal saline 1000ml 1,000 ML IV ONE ×2 (14:19→16:52)
[2024-07-31] MEDS: hydrocortisone sod succ/PF 100mg/2ml inj. IV STA (14:19)
[2024-07-31 14:21] LABS: ACETONE NEGATIVE (NEGATIVE)
[2024-07-31 14:28] LABS: ALANINE AMINOTRANSFERASE 26 U/L (12-78); ALBUMIN 3.8 G/DL (3.4-5.0); ALBUMIN/GLOBULIN RATIO 0.8 (1.1-1.5); ALKALINE PHOSPHATASE 89 IU/L (20-180); ANION GAP 15 (8-16); ASPARTATE AMINO TRANSFERASE 18 U/L (10-37); BILIRUBIN,TOTAL 0.5 MG/DL (0.1-1.0); BLOOD UREA NITROGEN 36 MG/DL (7-18); CALCIUM 8.5 MG/DL (8.5-10.1); CHLORIDE 99 MMOL/L (99-107); GLUCOSE 334 MG/DL (70-104); POTASSIUM 3.2 MMOL/L (3.5-5.1); SODIUM 136 MMOL/L (135-145); TOTAL CARBON DIOXIDE 22.3 MMOL/L (24-32); TOTAL PROTEIN 8.5 G/DL (6.4-8.2); eCRCL 41 ML/MIN; eGFR 44 ML/MIN
[2024-07-31 14:34] LABS: ETHANOL < 10 MG/DL (<10); LIPASE 30 U/L (16-77)
[2024-07-31 14:40] LABS: BILIRUBIN,URINE NEGATIVE (Neg); CLARITY,URINE CLEAR (Clear); COLOR,URINE YELLOW (Yellow); GLUCOSE, URINE >=1000 mg/dl (Neg); KETONES,URINE 40 mg/dl (Neg); LEUKOCYTE ESTERASE ,URINE NEGATIVE (Neg); NITRITES, URINE NEGATIVE (Neg); OCCULT BLOOD,URINE NEGATIVE (Neg); PH,URINE 6.5 (4.8-8.0); PROTEIN,URINE NEGATIVE (Neg); UROBILINOGEN,URINE 0.2 E.U/dL (0.2-1.0)
[2024-07-31 14:41] LABS: UA COLLECTION TYPE NON-SPECIFIED
[2024-07-31 14:42] LABS: BETA HCG,QUANTITATIVE < 1.0 mIU/ml
[2024-07-31 14:46] LABS: BACTERIA,URINE NONE SEEN /HPF (Neg); MUCUS STRANDS FEW /LPF (Neg); RBC,URINE 0-2 /HPF (0-2); SQUAMOUS EPITHELIAL CELL,UR MODERATE /LPF (FEW); WBC,URINE 0-4 /HPF (0-4)
[2024-07-31 14:50] LABS: URINE AMPHETAMINE SCREEN NEGATIVE (Neg); URINE BARBITUATE SCREEN NEGATIVE (Neg); URINE BENZODIAZEPINES SCREEN POSITIVE (Neg); URINE CANNABINOID SCREEN POSITIVE (Neg); URINE COCAINE SCREEN NEGATIVE (Neg); URINE METHADONE SCREEN NEGATIVE (Neg); URINE OPIATE SCREEN NEGATIVE (Neg); URINE PHENCYCLIDINE SCREEN NEGATIVE (Neg)
[2024-07-31] MEDS: magnesium sulf-water 4G/100mL 100 ML IV ONE (16:20)
[2024-07-31] MEDS: acetaminophen 1,000mg/100ml IV 100 ML IV ONE (16:47)
[2024-07-31] MEDS: potassium CL 10mEq/100ml bag 100 ML IV SCH (16:51)
[2024-07-31] MEDS: normal saline 1000ml 1,000 ML IV SCH (17:05)
[2024-07-31] MEDS ORDERED: mag hydrox/Alum hydrox/simeth 30ml oral suspension PO PRN (17:05)
[2024-07-31] MEDS ORDERED: magnesium hydroxide 30ml (MOM) UD suspension PO PRN (17:05)
[2024-07-31] MEDS ORDERED: potassium Cl 20 mEq SR tablet PO PRN (17:05)
[2024-07-31] MEDS ORDERED: potassium Cl 40MEQ/1/2NS 520ml 520 ML IV PRN (17:05)
[2024-07-31] MEDS ORDERED: magnesium sulf-water 2g/50mL 50 ML IV PRN (17:05)
[2024-07-31] MEDS ORDERED: magnesium sulf-water 4G/100mL 100 ML IV PRN (17:05)
[2024-07-31] MEDS ORDERED: DOCU100C38 PO (17:23)
[2024-07-31] MEDS ORDERED: FERR-119 PO (17:23)
[2024-07-31] MEDS ORDERED: TERI2.4P SUBCUT (17:23)
[2024-07-31] MEDS ORDERED: PRED2.5T4 PO (17:23)
[2024-07-31] MEDS ORDERED: PANT-47 PO (17:23)
[2024-07-31] MEDS ORDERED: insulin pump (17:25)
[2024-07-31] MEDS ORDERED: glucagon, human recombinant 1mg kit SUBCUT PRN (17:45)
[2024-07-31] MEDS ORDERED: dextrose 50%-water 50ml dispensing syringe IV PRN ×2 (17:45)
[2024-07-31] MEDS ORDERED: DEXTROSE 15 GM of carb/4 tabs (each vial/BOTTLE has 4 tablets) PO PRN ×2 (17:45)
[2024-07-31] MEDS ORDERED: SUMAtriptan 25 MG tablet PO PRN (18:00)
[2024-07-31 19:00] VITALS: BP 103/53; PULSE 80; RESP 14; TEMP 98.2; O2SAT 98
[2024-07-31 20:00] VITALS: RESP 14; O2SAT 98
[2024-07-31] MEDS ORDERED: magnesium oxide 400mg tablet PO PRN (20:00)
[2024-07-31] MEDS: K and/or MAG REPLACEMENT MC SCH (20:00)
[2024-07-31 20:17] LABS: MAGNESIUM 1.4 MG/DL (1.5-2.4)
[2024-07-31 22:00] VITALS: BP 104/55; PULSE 79; RESP 16; TEMP 97.9; O2SAT 97
[2024-07-31] MEDS: bisacodyl 10mg suppository rectal RC STA (22:10)
[2024-07-31] MEDS: metoclopramide 5 mg/ml inj IV SCH (22:10)
[2024-07-31] MEDS: calcitriol 0.25mcg capsule PO SCH (22:11)
[2024-07-31] MEDS: fludrocortisone acetate 0.1mg tablet PO SCH (22:12)
[2024-07-31] MEDS: zonisamide 100mg capsule PO SCH (22:14)
[2024-07-31] MEDS: predniSONE 5mg tablet PO SCH (22:20)
[2024-07-31] MEDS: docusate sod 100mg capsule PO SCH (22:20)
[2024-07-31] MEDS: LACOSAMIDE 50 MG TABLET PO SCH (23:09)
[2024-08-01 05:37] LABS: BASOPHILS % (AUTO) 0.2 % (0-1); EOSINOPHILS # (AUTO) 0.1 X10'3 (0-0.9); EOSINOPHILS % (AUTO) 0.6 % (0-6); HEMATOCRIT 36.5 % (35.0-45.0); HEMOGLOBIN 11.9 g/dl (12.0-16.0); LYMPHOCYTES # (AUTO) 1.3 X10'3 (1.1-4.8); LYMPHOCYTES % (AUTO) 12.3 % (21-51); MEAN CORPUSCULAR HEMOGLOBIN 28.6 PG (27.0-31.0); MEAN CORPUSCULAR HGB CONC 32.7 g/dL (33.0-36.5); MEAN CORPUSCULAR VOLUME 87.4 FL (78-98); MEAN PLATELET VOLUME 8.2 FL (7.4-10.4); MONOCYTES # (AUTO) 0.6 X10'3 (0-0.9); MONOCYTES % (AUTO) 5.4 % (2-12); NEUTROPHILS # (AUTO) 8.8 X10'3 (1.8-7.7); NEUTROPHILS % (AUTO) 81.5 % (42-75); PLATELET COUNT 222 X10'3 (140-440); RED BLOOD COUNT 4.18 X10'6 (4.20-5.60); WHITE BLOOD COUNT 10.8 X10'3 (4.5-11.0)
[2024-08-01 05:54] LABS: ALANINE AMINOTRANSFERASE 17 U/L (12-78); ALBUMIN 2.9 G/DL (3.4-5.0); ALBUMIN/GLOBULIN RATIO 0.8 (1.1-1.5); ALKALINE PHOSPHATASE 69 IU/L (20-180); ANION GAP 11 (8-16); ASPARTATE AMINO TRANSFERASE 18 U/L (10-37); BILIRUBIN,TOTAL 0.3 MG/DL (0.1-1.0); BLOOD UREA NITROGEN 25 MG/DL (7-18); BUN/CREATININE RATIO 26.3 (10.0-20.0); CALCIUM 7.4 MG/DL (8.5-10.1); CHLORIDE 106 MMOL/L (99-107); CREATININE 0.95 MG/DL (0.40-0.90); GLUCOSE 165 MG/DL (70-104); MAGNESIUM 1.5 MG/DL (1.5-2.4); POTASSIUM 3.7 MMOL/L (3.5-5.1); SODIUM 138 MMOL/L (135-145); TOTAL CARBON DIOXIDE 21.1 MMOL/L (24-32); TOTAL PROTEIN 6.7 G/DL (6.4-8.2); eCRCL 64 ML/MIN; eGFR 75 ML/MIN
[2024-08-01 06:00] VITALS: BP 89/41; PULSE 79; RESP 18; TEMP 97.3; O2SAT 98
[2024-08-01 08:00] VITALS: RESP 16; O2SAT 100
[2024-08-01] MEDS: ferrous sulfate 325mg tablet PO SCH (08:58)
[2024-08-01] MEDS: sertraline 25mg tablet PO SCH (08:58)
[2024-08-01 10:00] VITALS: BP 94/48; PULSE 77; RESP 16; TEMP 98.5; O2SAT 100
[2024-08-01] MEDS: estradiol 1mg tablet PO SCH (10:15)
[2024-08-01] MEDS: mineral oil 133ml enema RC ONE (10:15)
[2024-08-01] MEDS: psyllium seed 5.8 gm packet (sugar-free) PO SCH (13:20)
[2024-08-01] MEDS: lactulose 20gm/30ml cup PO SCH (13:20)
[2024-08-01 18:00] VITALS: BP 98/52; PULSE 77; RESP 14; TEMP 97.7; O2SAT 99
[2024-08-01 20:00] VITALS: RESP 16; O2SAT 100
[2024-08-01 22:00] VITALS: BP 97/61; PULSE 71; RESP 18; TEMP 97; O2SAT 96
[2024-08-01] MEDS: acetaminophen 325mg tablet PO PRN (22:37)
[2024-08-02] VITALS (7 sets, daily range): BP systolic 98–127; BP diastolic 56–83; PULSE 61–96; RESP 14–18; TEMP 97.2–98.3; O2SAT 95–100
[2024-08-02 06:14] LABS: BASOPHILS % (AUTO) 0.3 % (0-1); EOSINOPHILS # (AUTO) 0.1 X10'3 (0-0.9); EOSINOPHILS % (AUTO) 1.5 % (0-6); HEMATOCRIT 35.6 % (35.0-45.0); HEMOGLOBIN 11.8 g/dl (12.0-16.0); LYMPHOCYTES # (AUTO) 1.7 X10'3 (1.1-4.8); MEAN CORPUSCULAR HGB CONC 33.2 g/dL (33.0-36.5); MEAN CORPUSCULAR VOLUME 87.4 FL (78-98); MEAN PLATELET VOLUME 8.5 FL (7.4-10.4); MONOCYTES # (AUTO) 0.5 X10'3 (0-0.9); MONOCYTES % (AUTO) 7.3 % (2-12); NEUTROPHILS # (AUTO) 4.8 X10'3 (1.8-7.7); NEUTROPHILS % (AUTO) 66.9 % (42-75); PLATELET COUNT 222 X10'3 (140-440); RED BLOOD COUNT 4.07 X10'6 (4.20-5.60); RED CELL DISTRIBUTION WIDTH 13.8 % (11.5-14.5); WHITE BLOOD COUNT 7.2 X10'3 (4.5-11.0)
[2024-08-02 06:47] LABS: ALANINE AMINOTRANSFERASE 22 U/L (12-78); ALBUMIN 2.8 G/DL (3.4-5.0); ALBUMIN/GLOBULIN RATIO 0.8 (1.1-1.5); ALKALINE PHOSPHATASE 62 IU/L (20-180); ANION GAP 10 (8-16); ASPARTATE AMINO TRANSFERASE 20 U/L (10-37); BILIRUBIN,TOTAL 0.3 MG/DL (0.1-1.0); BLOOD UREA NITROGEN 12 MG/DL (7-18); BUN/CREATININE RATIO 13.3 (10.0-20.0); CALCIUM 7.2 MG/DL (8.5-10.1); CHLORIDE 108 MMOL/L (99-107); GLUCOSE 133 MG/DL (70-104); MAGNESIUM 1.3 MG/DL (1.5-2.4); SODIUM 142 MMOL/L (135-145); TOTAL CARBON DIOXIDE 23.9 MMOL/L (24-32); TOTAL PROTEIN 6.3 G/DL (6.4-8.2); eCRCL 68 ML/MIN; eGFR 80 ML/MIN
[2024-08-02] MEDS: potassium Cl 20 mEq SR tablet PO PRN (07:52)
[2024-08-02] MEDS: magnesium Cl slow-release 64mg tablet PO PRN (07:53)
[2024-08-02] MEDS: ondansetron/PF 4mg/2ml inj IV PRN (10:23)
[2024-08-02] MEDS: psyllium seed 5.8 gm packet (sugar-free) PO SCH (12:58)
[2024-08-02] MEDS: ibuprofen 200mg tablet PO PRN (13:00)
[2024-08-02] MEDS: lactulose 20gm/30ml cup PO SCH (13:07)
[2024-08-03 06:04] LABS: BASOPHILS % (AUTO) 0.4 % (0-1); EOSINOPHILS # (AUTO) 0.1 X10'3 (0-0.9); EOSINOPHILS % (AUTO) 1.7 % (0-6); HEMATOCRIT 36.9 % (35.0-45.0); HEMOGLOBIN 12.1 g/dl (12.0-16.0); LYMPHOCYTES # (AUTO) 1.7 X10'3 (1.1-4.8); LYMPHOCYTES % (AUTO) 23.8 % (21-51); MEAN CORPUSCULAR HEMOGLOBIN 28.9 PG (27.0-31.0); MEAN CORPUSCULAR HGB CONC 32.6 g/dL (33.0-36.5); MEAN CORPUSCULAR VOLUME 88.5 FL (78-98); MEAN PLATELET VOLUME 8.3 FL (7.4-10.4); MONOCYTES # (AUTO) 0.6 X10'3 (0-0.9); MONOCYTES % (AUTO) 8.5 % (2-12); NEUTROPHILS # (AUTO) 4.7 X10'3 (1.8-7.7); NEUTROPHILS % (AUTO) 65.6 % (42-75); PLATELET COUNT 232 X10'3 (140-440); RED BLOOD COUNT 4.17 X10'6 (4.20-5.60); WHITE BLOOD COUNT 7.1 X10'3 (4.5-11.0)
[2024-08-03 06:21] LABS: ALANINE AMINOTRANSFERASE 26 U/L (12-78); ALBUMIN 2.9 G/DL (3.4-5.0); ALBUMIN/GLOBULIN RATIO 0.8 (1.1-1.5); ALKALINE PHOSPHATASE 64 IU/L (20-180); ANION GAP 8 (8-16); ASPARTATE AMINO TRANSFERASE 21 U/L (10-37); BILIRUBIN,TOTAL 0.4 MG/DL (0.1-1.0); BLOOD UREA NITROGEN 7 MG/DL (7-18); BUN/CREATININE RATIO 8.2 (10.0-20.0); CALCIUM 7.8 MG/DL (8.5-10.1); CHLORIDE 109 MMOL/L (99-107); CREATININE 0.85 MG/DL (0.40-0.90); GLUCOSE 108 MG/DL (70-104); MAGNESIUM 1.3 MG/DL (1.5-2.4); SODIUM 140 MMOL/L (135-145); TOTAL PROTEIN 6.7 G/DL (6.4-8.2); eCRCL 72 ML/MIN; eGFR 85 ML/MIN
[2024-08-03 06:58] VITALS: BP 90/47; PULSE 64; RESP 14; TEMP 98.3; O2SAT 97
[2024-08-03] MEDS: insulin pump.resvr SQ SCH (07:00)
[2024-08-03 08:00] VITALS: RESP 16
[2024-08-03] MEDS ORDERED: psyllium 5.8g sugar-free pkt PO (11:00)
[2024-08-03] MEDS ORDERED: LACT-373 PO (11:00)
[2024-08-03 11:59] VITALS: BP 114/72; PULSE 74; RESP 16; TEMP 98.7; O2SAT 98
[2024-08-03 15:04] VITALS: RESP 16; O2SAT 98
== END 2024-08-03 16:08 | disposition home health service (06) | DRG 422 ==
LOC: ER 13:13 → ED HOLD 17:05 → SUR 3N 19:00
PROVIDERS: ADMIT Internal Medicine; ATTEND Internal Medicine
DX: E87.6 Hypokalemia (principal); E86.0 Dehydration; N17.0 Acute kidney failure with tubular necrosis; R56.9 Unspecified convulsions; E10.65 Type 1 diabetes mellitus with hyperglycemia; E27.1 Primary adrenocortical insufficiency; E20.9 Hypoparathyroidism, unspecified; K59.09 Other constipation; Z79.899 Other long term (current) drug therapy; Z79.4 Long term (current) use of insulin; Z88.0 Allergy status to penicillin; Z88.8 Allergy status to other drugs, medicaments and biological substances; Z83.3 Family history of diabetes mellitus
CPT/HCPCS: 36415; 36600; 71045; 74176; 80053; 80305; 80320; 81001; 82009; 82803; 82948; 83036; 83605; 83690; 83735; 84145; 84702; 85018; 85025; 87502; 87503; 93005; 96365; 96367; 99285; G0378; J0131; J1720; J2405; J2765; J3480; J7030; J7512

== ENCOUNTER 2024-10-16 03:26 | Emergency (ER) | payer MEDICAID, SELFPAY ==
[~2024-10-16] VITALS: Ht 149.9 cm; Wt 63.4 kg
[~2024-10-16 03:26] MED LIST changes: -CHOL100046 PO; -DIF150T PO; +DOCU100C38 PO; -FAMO-128 PO; +FERR-119 PO; -FLO0.1T PO; +FLUD0.1T2 PO; -GLUC3SPR; -INSU100C10 SQ; -INSU100V41; +LACT-373 PO; -LIDO1ADH78 TOP; -METH-798 PO; -OSC500T PO; +PANT-47 PO; -PRE5T CORPAK; +PRED2.5T4 PO; -PROC-8 PO; +TERI2.4P SUBCUT; +insulin pump; +psyllium 5.8g sugar-free pkt PO
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
[2024-10-16 04:48] LABS: BASOPHILS # (AUTO) 0.1 X10'3 (0-0.2); BASOPHILS % (AUTO) 0.7 % (0-1); EOSINOPHILS # (AUTO) 0.1 X10'3 (0-0.9); EOSINOPHILS % (AUTO) 1.2 % (0-6); HEMATOCRIT 31.2 % (35.0-45.0); HEMOGLOBIN 10.3 g/dl (12.0-16.0); LYMPHOCYTES # (AUTO) 1.2 X10'3 (1.1-4.8); LYMPHOCYTES % (AUTO) 12.9 % (21-51); MEAN CORPUSCULAR HEMOGLOBIN 29.5 PG (27.0-31.0); MEAN CORPUSCULAR HGB CONC 33.1 g/dL (33.0-36.5); MEAN CORPUSCULAR VOLUME 88.9 FL (78-98); MEAN PLATELET VOLUME 8.6 FL (7.4-10.4); MONOCYTES # (AUTO) 0.7 X10'3 (0-0.9); MONOCYTES % (AUTO) 7.9 % (2-12); NEUTROPHILS % (AUTO) 77.3 % (42-75); PLATELET COUNT 308 X10'3 (140-440); RED BLOOD COUNT 3.51 X10'6 (4.20-5.60); WHITE BLOOD COUNT 9.1 X10'3 (4.5-11.0)
[2024-10-16 04:56] LABS: ALBUMIN 2.7 G/DL (3.4-5.0); ANION GAP 9 (8-16); BLOOD UREA NITROGEN 12 MG/DL (7-18); BUN/CREATININE RATIO 8.7 (10.0-20.0); CALCIUM 7.9 MG/DL (8.5-10.1); CHLORIDE 106 MMOL/L (99-107); CREATININE 1.38 MG/DL (0.40-0.90); GLUCOSE 344 MG/DL (70-104); POTASSIUM 3.2 MMOL/L (3.5-5.1); SODIUM 142 MMOL/L (135-145); TOTAL CARBON DIOXIDE 26.9 MMOL/L (24-32); eCRCL 44 ML/MIN; eGFR 48 ML/MIN
[2024-10-16 05:19] LABS: STREP A SCREEN NEGATIVE (Neg)
[2024-10-16] MEDS: normal saline 1000ml 1,000 ML IV ONE (06:10)
[2024-10-16] MEDS: potassium chloride 10mEq ER tablet PO SCH (06:11)
--- NOTE | 2024-10-16 06:19 | RADIOLOGY REPORT ---
EXAM: CT CT HEAD INDICATION: recent brain abscess drained, continued headaches, lightheadedness TECHNIQUE: CT of the head without intravenous contrast. Coronal and sagittal reformatted images are s ubmitted. Radiation Dose : 1. Head: CT Dose: CTDI volume is 55.2 mGy. Dose-length product is 955.1 mGy*cm The dose indicators for CT are the volume Computed Tomography (CT) Dose Index (CTDIvol) and the Dose Length Product (DLP), and are measured in units of mGy and mGy-cm, respectively. These indicators are not patient dose, but values generated from the CT scanner acquisition factors. The report includes radiation exposure data for exposures received during this examination. All CT scans at this medical facility are performed using dose modulation techniques as appropriate to a performed exam including the following: Automated exposure control was utilized; adjustment of the MA and/or KV according to patient size; and use of iterative reconstruction technique. COMPARISON: CT CT HEAD on DOS: 01/11/24 FINDINGS: There is no evidence of acute intracranial hemorrhage, extra-axial collection, mass effect, midline s hift, herniation or hydrocephalus. The ventricles, sulci and cisterns are age appropriate. The sheffield-white differentiation is intact. The visualized paranasal sinuses and mastoid air cells are clear. No depressed calvarial fracture. The surrounding soft tissues are unremarkable. IMPRESSION: 1. No evidence of acute intracranial abnormality.
[2024-10-16 06:37] VITALS: TEMP 98.3
[2024-10-16] MEDS: SUMAtriptan 25 MG tablet PO ONE (07:05)
[2024-10-16] MEDS: oxyCODONE/APAP 10/325mg tablet PO ONE (07:05)
[2024-10-16 08:03] VITALS: BP 137/96; PULSE 63; RESP 13; O2SAT 100
== END 2024-10-16 08:08 | disposition home or self-care (01) ==
LOC: ER 03:27
DX: R51.9 Headache, unspecified (principal); E10.9 Type 1 diabetes mellitus without complications; F12.90 Cannabis use, unspecified, uncomplicated; Z79.4 Long term (current) use of insulin; Z88.0 Allergy status to penicillin; Z90.49 Acquired absence of other specified parts of digestive tract; Z79.899 Other long term (current) drug therapy; Z20.822 Contact with and (suspected) exposure to COVID-19
CPT/HCPCS: 36415; 70450; 80048; 83605; 85025; 87040; 87081; 87811; 87880; 96360; 99284; J7030

== ENCOUNTER → 2024-11-02 | Emergency (ER) | payer MEDICAID ==
[~2024-11-02] VITALS: Ht 149.9 cm; Wt 58.6 kg
[2024-11-02 15:47] VITALS: TEMP 98.5
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
[2024-11-02] MEDS: normal saline 1000ML IV soln IVB ONE (17:43)
[2024-11-02] MEDS: ketorolac trometh 15mg/ml vial 15 MG/ML ML IV ONE (17:47)
[2024-11-02] MEDS: metoclopramide 5 mg/ml inj IV ONE (17:49)
[2024-11-02] MEDS: diphenhydrAMINE 50 mg/ml inj IV ONE (17:50)
--- NOTE | 2024-11-02 18:02 | RADIOLOGY REPORT ---
CT CT HEAD Indication: recent head trauma w/persistant migraine SEPTEMBER 05 AND SURGERY FOR BRAIN ABCESS 5-28 EXAM DATE: 11/02/2024 05:15 PM COMPARISON: CT CT HEAD on DOS: 10/16/24, CT CT HEAD on DOS: 01/11/24 TECHNIQUE: CT of the head without intravenous contrast. RADIATION DOSE: CTDIvol: 54 mGy, DLP: 933 mGy*cm FINDINGS: There is no intracranial hemorrhage. There is no extra-axial fluid, mass, mass effect or midline shif t. The ventricles are midline and normal in size. Basilar cisterns are patent. Ballard-white differentia tion is maintained. Mastoids well pneumatized. Postsurgical changes of the frontal bone / superior orbits bilaterally. Fr ontal sinus opacification, similar to prior. Imaged portion of the orbits are unremarkable. IMPRESSION: No intracranial hemorrhage or mass effect. Postsurgical changes of the frontal bone/supraorbital region with opacification of the frontal sinus, similar to previous examination.
[2024-11-02 18:29] LABS: BASOPHILS % (AUTO) 0.6 % (0-1); EOSINOPHILS % (AUTO) 0.4 % (0-6); HEMATOCRIT 39.9 % (35.0-45.0); HEMOGLOBIN 13.2 g/dl (12.0-16.0); LYMPHOCYTES # (AUTO) 0.7 X10'3 (1.1-4.8); LYMPHOCYTES % (AUTO) 9.3 % (21-51); MEAN CORPUSCULAR HEMOGLOBIN 29.1 PG (27.0-31.0); MEAN CORPUSCULAR VOLUME 88.3 FL (78-98); MEAN PLATELET VOLUME 8.5 FL (7.4-10.4); MONOCYTES # (AUTO) 0.6 X10'3 (0-0.9); MONOCYTES % (AUTO) 7.8 % (2-12); NEUTROPHILS # (AUTO) 6.4 X10'3 (1.8-7.7); NEUTROPHILS % (AUTO) 81.9 % (42-75); PLATELET COUNT 250 X10'3 (140-440); RED BLOOD COUNT 4.53 X10'6 (4.20-5.60); RED CELL DISTRIBUTION WIDTH 15.6 % (11.5-14.5); WHITE BLOOD COUNT 7.8 X10'3 (4.5-11.0)
[2024-11-02 19:06] VITALS: BP 115/75; PULSE 82; RESP 18; O2SAT 98
[2024-11-02 19:12] LABS: ALBUMIN 3.7 G/DL (3.4-5.0); ANION GAP 14 (8-16); BLOOD UREA NITROGEN 15 MG/DL (7-18); BUN/CREATININE RATIO 13.5 (10.0-20.0); CALCIUM 8.3 MG/DL (8.5-10.1); CHLORIDE 105 MMOL/L (99-107); CREATININE 1.11 MG/DL (0.40-0.90); GLUCOSE 105 MG/DL (70-104); SODIUM 142 MMOL/L (135-145); TOTAL CARBON DIOXIDE 23.5 MMOL/L (24-32); eCRCL 55 ML/MIN; eGFR 62 ML/MIN
[2024-11-02 19:21] LABS: POTASSIUM 2.9 MMOL/L (3.5-5.1)
== END | disposition home or self-care (01) ==
LOC: ER 15:21
DX: G43.909 Migraine, unspecified, not intractable, without status migrainosus (principal); E11.9 Type 2 diabetes mellitus without complications; F12.90 Cannabis use, unspecified, uncomplicated; Z88.0 Allergy status to penicillin; Z90.49 Acquired absence of other specified parts of digestive tract
CPT/HCPCS: 36415; 70450; 80048; 85025; 96361; 96374; 96375; 99285; J1200; J1885; J2765; J7030; 96360

== ENCOUNTER 2025-02-12 04:04 | Emergency (ER) | payer MEDICAID ==
[~2025-02-12] VITALS: Ht 149.9 cm; Wt 61.4 kg
--- NOTE | 2025-02-12 04:41 | Physician Documentation ---
History of Present Illness ~ Chief Complaint: Ear Pain Stated Complaint: EAR DISCOMFORT Time Seen by MD: 04:40 Primary Medical Doctor: [facility] Patient presents to the emergency room with bilateral ear pain over this past week. She was seen by primary care who placed her on antibiotics. She has been occasionally taking Tylenol last time yesterday morning. No fevers. Medication Reconciliation Allergies: Coded Allergies: Penicillins (Unverified Allergy, Unknown, 10/16/24) silver (Verified Allergy, Unknown, 10/16/24) Scheduled Calcitriol (CALCITRIOL capsule), 0.25 MCG PO BID, (Reported) Clobazam (Onfi), 1 TAB PO BID, (Reported) Docusate Sodium (Docusate Sodium), 1 CAP PO Q12H, (Reported) Estradiol* (Estrace*), 2 TAB PO DAILY, (Reported) Ferrous Sulfate (Iron), 1 TAB PO DAILY, (Reported) Fludrocortisone Acetate* (Florinef*), 1 TAB PO BID, (Reported) Lacosamide (Vimpat), 1.5 TAB PO Q12H, (Reported) Lactulose (Lactulose), 30 GM PO TID Magnesium Oxide (Magnesium), 2 TAB PO Q12H PRN, (Reported) Prednisone (Prednisone), 1 TAB PO BID, (Reported) Sertraline Hcl* (Zoloft*), 1 TAB PO DAILY, (Reported) Teriparatide (Forteo), 20 MCG SUBCUT BID, (Reported) Zonisamide (Zonisamide), 3 CAP PO Q12H, (Reported) [psyllium 5.8g sugar-free pkt], 1 PACKET PO TID Scheduled PRN Sumatriptan Succinate* (Imitrex Tab*), 1 TAB PO PRN PRN for headache, (Reported) [insulin pump], for Per Protocol, (Reported) Miscellaneous Medications Pantoprazole Sodium (PROTONIX tablet), 40 MG PO, (Reported) Past Medical History Past Medical History: Seizures, *RENAL/*, *ENDOCRINE*, Diabetes Past Surgical History: cholecystectomy Patient History: FH: type 2 diabetes MOTHER Alcohol Use: None Drug Use: marijuana Lives with: Family Lives In: Home Occupation: student, other Review of Systems ROS All review of systems negative except as per HPI Physical Exam Vital Signs: Temperature: 97.3, Source: Temporal, Heart Rate: 106, Respiratory Rate: 20, BP: 120/62, Pulse Oximetry: 98, Weight: 61.360 Oxygen Flow Rate: 0 Physical Exam General: Patient is awake, alert, oriented x4 in no acute distress Head: Normocephalic and atraumatic. Eyes: Conjunctival normal. EOMI. PERRL. ENT: Mucous membranes moist. Bilateral tympanic membranes clear. No tenderness to palpation over mastoid process. Noted swollen lymph node just inferior to patient's right ear. Pharynx clear Neck: Supple, trachea is midline. Chest: Clear to auscultation bilaterally without rales, rhonchi, or wheezes. There is no accessory muscle use or retractions. Cardiac: RRR without murmurs, gallops, or rubs. Progress Results/Orders Results/Orders Vital Signs 02/12/25 02/12/25 04:09 04:26 Temp 98.3 97.3 Pulse 105 106 Resp 16 20 B/P (MAP) 98/65 120/62 (81) Pulse Ox 97 98 O2 Flow Rate 0 0 Medical Decision Making Findings Patient presented to the emergency room with ear pain. Differentials include but are not limited to Eustachian tube dysfunction, ear infection, thermal burn, mastoiditis. Tympanic membranes are clear and that has a swollen lymph node beneath patient's right ear but does not represent mastoiditis. Possible Eustachian tube dysfunction. She is already on antibiotics. Recommended increasing frequency of Tylenol. Departure Disposition: HOME / SELF CARE / HOMELESS Impression: Primary Impression: Ear pain Condition: Stable Discharge Instructions: Earache, Adult Referrals: NO PRIMARY CARE PROVIDER (PCP) Signature Scribe Signature: No scribe Attestation: The note accurately reflects work and decisions made by me.Gurvinder Persaud MD 02/12/25 04:55 GURVINDER PERSAUD MD Feb 12, 2025 04:41
[2025-02-12 05:19] VITALS: BP 120/62; PULSE 100; RESP 18; TEMP 97.3; O2SAT 96
== END 2025-02-12 05:20 | disposition home or self-care (01) ==
LOC: ER 04:05
DX: H92.03 Otalgia, bilateral (principal); E11.9 Type 2 diabetes mellitus without complications; F12.90 Cannabis use, unspecified, uncomplicated; Z88.0 Allergy status to penicillin; Z88.8 Allergy status to other drugs, medicaments and biological substances; Z90.49 Acquired absence of other specified parts of digestive tract
CPT/HCPCS: 99282

== ENCOUNTER 2025-02-15 17:45 | Emergency (ER) | payer MEDICAID ==
[~2025-02-15] VITALS: Ht 149.9 cm; Wt 75.0 kg
--- NOTE | 2025-02-15 17:56 | Physician Documentation ---
History of Present Illness ~ Chief Complaint: Diabetic Complication Stated Complaint: DIABETIC COMPLICATION Time Seen by MD: 17:51 Primary Medical Doctor: [facility] Patient presents to the emergency room with hypoglycemia. Ambulance was called secondary to unresponsiveness and low sugars on reading. Upon EMS arrival blood sugar was 18. Glucagon administered along with IV glucose. Patient's mentation improved. She wears a wearable insulin pump and denies any exogenous insulin and other from this pump. Medication Reconciliation Allergies: Coded Allergies: Penicillins (Unverified Allergy, Unknown, 10/16/24) silver (Verified Allergy, Unknown, 10/16/24) Scheduled Calcitriol (CALCITRIOL capsule), 0.25 MCG PO BID, (Reported) Clobazam (Onfi), 1 TAB PO BID, (Reported) Docusate Sodium (Docusate Sodium), 1 CAP PO Q12H, (Reported) Estradiol* (Estrace*), 2 TAB PO DAILY, (Reported) Ferrous Sulfate (Iron), 1 TAB PO DAILY, (Reported) Fludrocortisone Acetate* (Florinef*), 1 TAB PO BID, (Reported) Lacosamide (Vimpat), 1.5 TAB PO Q12H, (Reported) Lactulose (Lactulose), 30 GM PO TID Magnesium Oxide (Magnesium), 2 TAB PO Q12H PRN, (Reported) Prednisone (Prednisone), 1 TAB PO BID, (Reported) Sertraline Hcl* (Zoloft*), 1 TAB PO DAILY, (Reported) Teriparatide (Forteo), 20 MCG SUBCUT BID, (Reported) Zonisamide (Zonisamide), 3 CAP PO Q12H, (Reported) [psyllium 5.8g sugar-free pkt], 1 PACKET PO TID Scheduled PRN Sumatriptan Succinate* (Imitrex Tab*), 1 TAB PO PRN PRN for headache, (Reported) [insulin pump], for Per Protocol, (Reported) Miscellaneous Medications Pantoprazole Sodium (PROTONIX tablet), 40 MG PO, (Reported) Past Medical History Past Medical History: Seizures, *RENAL/*, *ENDOCRINE*, Diabetes Past Surgical History: cholecystectomy Patient History: FH: type 2 diabetes MOTHER Alcohol Use: None Drug Use: marijuana Lives with: Family Lives In: Home Occupation: student, other Review of Systems ROS All review of systems negative except as per HPI Physical Exam Vital Signs: Temperature: 98.2, Source: Oral, Heart Rate: 76, Respiratory Rate: 16, BP: 113/71, Pulse Oximetry: 98, Weight: 75.000 Oxygen Flow Rate: 0 Physical Exam General: Patient is awake, alert, oriented x4 in no acute distress Head: Normocephalic and atraumatic. Eyes: Conjunctival normal. EOMI. PERRL. ENT: Mucous membranes moist. Neck: Supple, trachea is midline. Chest: Clear to auscultation bilaterally without rales, rhonchi, or wheezes. There is no accessory muscle use or retractions. Cardiac: RRR without murmurs, gallops, or rubs. Abd: Soft, nondistended, nontender, with normoactive bowel sounds. No guarding, rebound, or rigidity. Progress Results/Orders Results/Orders Orders - GURVINDER PERSAUD MD Urinalysis, Cult If Indicated (02/15/25 17:56) Hcg, Ur Ql (02/15/25 17:56) Saline Lock (02/15/25 17:56) Nothing By Mouth (02/16/25 Dinner) Completed Orders - GURVINDER PERSAUD MD Cbc/Diff (02/15/25 17:56) Lipase (02/15/25 17:56) BMP (02/15/25 17:56) Procalcitonin (02/15/25 17:56) Potassium Cl Sr Tablet (K-Dur Tablet) (02/15/25 18:59) Acetaminophen 325mg Tablet (Tylenol Tabl (02/15/25 19:30) Vital Signs 02/15/25 02/15/25 17:49 18:14 Temp 98.2 Pulse 76 Resp 16 16 B/P (MAP) 113/71 Pulse Ox 98 O2 Flow Rate 0 Laboratory Tests Test 02/15/25 18:09 02/15/25 18:13 02/15/25 18:22 02/15/25 18:34 Glucometer 157 H 203 H 187 H White Blood Count 8.5 Red Blood Count 4.52 Hemoglobin 12.6 Hematocrit 38.5 Mean Corpuscular Volume 85.2 Mean Corpuscular Hemoglobin 27.9 Mean Corpuscular Hemoglobin Concent 32.7 L Red Cell Distribution Width 14.3 Platelet Count 257 Mean Platelet Volume 8.6 Neutrophils (%) (Auto) 70.2 Lymphocytes (%) (Auto) 17.7 L Monocytes (%) (Auto) 9.1 Eosinophils (%) (Auto) 2.4 Basophils (%) (Auto) 0.6 Neutrophils # (Auto) 6.0 Lymphocytes # (Auto) 1.5 Monocytes # (Auto) 0.8 Eosinophils # (Auto) 0.2 Basophils # (Auto) 0.0 CBC Comment Sodium Level 140 Potassium Level 2.5 *L Chloride Level 104 Carbon Dioxide Level 26.8 Anion Gap 9 Blood Urea Nitrogen 21 H Creatinine 1.04 H Estimated GFR/1.73 m2 67 BUN/Creatinine Ratio 20.2 H Glucose Level 227 H Calcium Level 6.2 L Albumin 3.3 L Lipase 33 Procalcitonin < 0.05 Chemistry Comments Test 02/15/25 18:49 02/15/25 19:07 02/15/25 19:28 Glucometer 240 H 244 H 270 H Medical Decision Making Additional info obtained from: old records Findings Patient presents to the emergency room for evaluation of hypoglycemia. She has been monitored for time and sugars have stabilized. She does not take any long- acting insulin. She does endorse taking additional insulin secondary to hyperglycemia and that has readjusted her device to a lower setting. She will be watched closely by mother at bedside. ER precautions discussed. Noted low potassium although this is partly secondary to patient's low blood sugars from her recent event. We will supplement. Differential Dx:Considerations: Include: Appendicitis, Bowel obstruction, Cholecysitis, Dehydration, Diabetes, Diabetic coma, DKA, Electrolyte abnormality, Encephalopathy, Gastritis, Hepatitis, Hyperglycemia, Hyperosmolar state, Hypoglycemia, Pancreatitis, Pyelonephritis, UTI, Other Departure Disposition: HOME / SELF CARE / HOMELESS Impression: Primary Impression: Hypoglycemia Additional Impression: Hypokalemia Condition: Stable Discharge Instructions: Hypoglycemia Additional Instructions: Here potassium was a bit low today. Follow up with your doctor within the next week for rechecking of potassium levels. I will put her on a small supplement until that time Referrals: NO PRIMARY CARE PROVIDER (PCP) Prescriptions Potassium Chloride* (K-Dur*) 20 Meq Tab.prt.sr 1 TAB PO Q12H, #6 TAB Prov: GURVINDER PERSAUD MD 10/13/25 Signature Scribe Signature: No scribe Attestation: The note accurately reflects work and decisions made by me.Gurvinder Persaud MD 02/15/25 19:53 GURVINDER PERSAUD MD Feb 15, 2025 17:56
[2025-02-15 18:38] LABS: MEAN PLATELET VOLUME 8.6 FL (7.4-10.4); RED CELL DISTRIBUTION WIDTH 14.3 % (11.5-14.5)
[2025-02-15 18:50] LABS: CREATININE 1.04 MG/DL (0.40-0.90); TOTAL CARBON DIOXIDE 26.8 MMOL/L (24-32); eCRCL 58 ML/MIN; eGFR 67 ML/MIN
[2025-02-15] MEDS ORDERED: POTA-207 PO (19:52)
[2025-02-15 20:15] VITALS: BP 97/67; PULSE 88; RESP 16; TEMP 98.2; O2SAT 99
[2025-02-15] MEDS: potassium Cl 20 mEq SR tablet PO STA (20:22)
== END 2025-02-15 20:30 | disposition home or self-care (01) ==
LOC: ER 17:45
DX: E11.649 Type 2 diabetes mellitus with hypoglycemia without coma (principal); E87.6 Hypokalemia; F12.90 Cannabis use, unspecified, uncomplicated; Z79.4 Long term (current) use of insulin; Z88.0 Allergy status to penicillin; Z90.49 Acquired absence of other specified parts of digestive tract; Z79.899 Other long term (current) drug therapy; Z91.048 Other nonmedicinal substance allergy status
CPT/HCPCS: 36415; 80048; 82948; 83690; 84145; 85025; 99284